=== PATIENT | female | born 1965 | race Caucasian/White ===

== ENCOUNTER 2016-05-26 15:05 | Inpatient (IN) | payer OTHER ==
[2016-05-26] MEDS ORDERED: Sodium Chloride 0.9% 1000 ML 1,000 ML ONE ×2 (15:44→18:59)
[2016-05-26] MEDS ORDERED: Sodium Chloride 0.9% 1000 ML 1,000 ML IV STA ×2 (15:48→18:58)
[2016-05-26] MEDS ORDERED: Zosyn 3.375GM/100 Ml D5W 100 ML IV ONE ×2 (15:50→16:07)
[2016-05-26] MEDS ORDERED: Zithromax 500 MG/ 250 ML NaCl Premix 250 ML IV ONE ×2 (15:50→16:07)
[2016-05-26] MEDS ORDERED: PROVENTIL 2.5 MG/3 ML NEB IH ONE (15:50)
--- NOTE | 2016-05-26 16:08 | ERPHSYRPT ---
- History of Present Illness Time Seen by Provider: 05/26/16 15:46 Source: patient Exam Limitations: clinical condition Patient Subjective Stated Complaint: PT REPORTS PRODUCTIVE COUGH WORSENING FOR KEIRA 1 WK-UNSURE OF FEVER-REPORTS INTERMITTANT CHEST PAIN WORSENIGN WITH DEEP BREATHING-PT STATES SHE IS TOWARD THE END OF OPIOD WITHDRAWAL-LAST TAKEN KEIRA 6 DAYS AGO Triage Nursing Assessment: PT PINK WARM FLUSHED ET DRY-A & O X 3-RETRACTIVE BREATHING NOTED-DIFFICUTLY SPEAKING IN COMPLETE SENTENCES NOTED-ADVENTIOUS BREATH SOUNDS NOTED Physician History: PATIENT WITH HISTORY OF COPD, COMPLAINS OF PRODUCTIVE COUGH, SHARP LEFT LOWER CHEST PAINS UPON INSPIRATION X 1 WEEK, FEVER AND CHILLS. ADMITS TO BEING OUT OF HER MORPHINE X 6 DAYS, FOR CHRONIC PAIN SYNDROME, DEGENERATIVE DISC DISEASE. Timing/Duration: week(s) Activities at Onset: activity Severity of Dyspnea-Max: severe Severity of Dyspnea-Current: severe Possible Cause: occasional episodes Modifying Factors: Improves With: coughing, deep breath Associated Symptoms: constant, cough International travel in last 2 weeks: No Allergies/Adverse Reactions: aspirin Allergy (Verified 05/26/16 15:10) codeine [Codeine] Allergy (Verified 05/26/16 15:10) hydrocodone [Hydrocodone] Allergy (Verified 05/26/16 15:10) Hives oxycodone [Oxycodone] Allergy (Verified 05/26/16 15:10) Hives prochlorperazine edisylate [From Compazine] Allergy (Verified 05/26/16 15:10) prochlorperazine maleate [From Compazine] Allergy (Verified 05/26/16 15:10) Home Medications: Divalproex Sodium 250 mg [Depakote 250 MG] 500 mg PO BID 07/26/12 [History] Clonazepam 0.5 mg [Klonopin 0.5 MG] 0.5 mg PO BID 10/27/12 [History] Doxepin HCl 75 mg PO BID 10/27/12 [History] Clonazepam 0.5 mg [Klonopin 0.5 MG] 1 mg PO BID 01/31/16 [History] Tapentadol HCl [Nucynta ER] 150 mg BID 01/31/16 [History] Hx Tetanus, Diphtheria Vaccination/Date Given: Yes Hx Influenza Vaccination/Date Given: No Hx Pneumococcal Vaccination/Date Given: No Immunizations Up to Date: Yes - Review of Systems Constitutional: Fever, Chills Eyes: No Symptoms Ears, Nose, & Throat: No Symptoms Respiratory: Cough, Dyspnea, Dyspnea on Exertion (STUART) Cardiac: Chest Pain, No Edema, No Syncope Abdominal/Gastrointestinal: No Abdominal Pain, No Nausea, No Vomiting, No Diarrhea Genitourinary Symptoms: No Symptoms, No Dysuria Musculoskeletal: No Symptoms, No Back Pain, No Neck Pain Skin: No Rash Neurological: No Dizziness, No Focal Weakness, No Sensory Changes Psychological: No Symptoms Endocrine: No Symptoms All Other Systems: Reviewed and Negative - Past Medical History Pertinent Past Medical History: Yes Neurological History: Seizures, Stroke ENT History: No Pertinent History Cardiac History: No Pertinent History Respiratory History: Asthma, Pneumonia Endocrine Medical History: No Pertinent History Musculoskeletal History: Arthritis, Degenerative Disk Disease, Osteoarthritis, Other GI Medical History: Other History: No Pertinent History Psycho-Social History: Anxiety, Depression Female Reproductive Disorders: Other Other Medical History: ADHEASIONS - Past Surgical History Past Surgical History: Yes Neuro Surgical History: No Pertinent History Cardiac: No Pertinent History Respiratory: No Pertinent History Gastrointestinal: Cholecystectomy Female Surgical History: Hysterectomy Other Surgical History: C SECTIONS X 6 - Social History Smoking Status: Current every day smoker How long have you smoked: YRS Exposure to second hand smoke: Yes Alcohol Use: None Drug Use: none Patient Lives Alone: No Significant Family History: no pertinent family hx - Female History Hx Now: No - Nursing Vital Signs Nursing Vital Signs: Initial Vital Signs Temperature 97.8 F Temperature Source Oral Pulse Rate 80 Respiratory Rate 18 Blood Pressure 107/63 Pain Intensity 9 - Physical Exam General Appearance: mild distress Eye Exam: PERRL/EOMI Neck Exam: normal inspection, supple Respiratory Exam: diminished breath sounds, prolonged expirations, rhonchi, wheezing (DECREASE BREATH SOUNDS WITH RHONCHI AND WHEEZES, MARKED TENDERNESS LEFT LATERAL LOWER CHEST WALL) Cardiovascular/Chest Exam: normal heart sounds, tachycardia Abdominal/Gastrointestinal Exam: soft, normal bowel sounds Extremity Exam: non-tender, normal range of motion Peripheral Pulses Exam: carotid (R): 2+, carotid (L): 2+, femoral (R): 2+, femoral (L): 2+, dorsalis-pedis (R): 2+, dorsalis-pedis (L): 2+ Neurologic Exam: alert, normal mood/affect Skin Exam: normal color Lymphatic Exam: adenopathy SpO2 Interpretation: normal SpO2: 98 - Course EKG Interpreted by Me: RATE, Sinus Rhythm, NORMAL AXIS - Radiology Exams Ribs X-ray Interpretation: Discussed w/ radiologist (NONACUTE CHEST ) Ordered Tests: Active Orders 24 hr Category Date Time Status Up With Assistance ROUTINE Activity 05/26/16 18:59 Active Admission/Status Order ROUTINE Care 05/26/16 19:00 Active Bill Cutter STAT Care 05/26/16 15:48 Active Code Status Order ROUTINE Care 05/26/16 19:00 Active EKG-ER Only STAT Care 05/26/16 15:48 Active IV Care Q6H Care 05/26/16 19:00 Active IV Insertion STAT Care 05/26/16 15:48 Active Oxygen-ED Only NASAL CANNULA 2 lpm Care 05/26/16 15:48 Active Tyron Hose, Apply ROUTINE Care 05/26/16 19:00 Active Telemetry ROUTINE Care 05/26/16 18:59 Active Vital Signs Q4H Care 05/26/16 18:59 Active Weight,Daily 0600 Care 05/26/16 19:00 Active Cardiac Diet Diet 05/26/16 Breakfast Active CHEST 1 VIEW (PORTABLE) Stat Exams 05/26/16 15:49 Completed ARTERIAL BLOOD GASES Urgent Lab 05/26/16 15:48 Completed BLOOD CULTURE Stat Lab 05/26/16 16:30 Received CBC W DIFF Stat Lab 05/26/16 15:45 Completed CMP Stat Lab 05/26/16 17:00 Completed D-DIMER QUANTITATION Stat Lab 05/26/16 15:45 Completed Lactic Acid Urgent Lab 05/26/16 15:50 Completed Manual Differential NC Stat Lab 05/26/16 15:45 Completed PROTIME WITH INR Stat Lab 05/26/16 15:45 Completed TROPONIN Q3H Lab 05/26/16 15:45 Completed TROPONIN Q3H Lab 05/26/16 19:00 Ordered TROPONIN Q3H Lab 05/26/16 22:00 Ordered TROPONIN Q3H Lab 05/27/16 01:00 Ordered TROPONIN Q3H Lab 05/27/16 04:00 Ordered UA Stat Lab 05/26/16 16:13 Completed Urine Triage Profile Stat Lab 05/26/16 16:13 Completed VALPROIC ACID ([place]) Routine Lab 05/26/16 15:45 Completed Oxygen NASAL CANNULA 2 lpm RT 05/26/16 18:59 Active Pulse Oximetry CONTINUOUS RT 05/26/16 19:01 Active Respiratory Nebulizer Q4H RT 05/26/16 18:59 Active Respiratory Nebulizer STAT RT 05/26/16 15:51 Completed Transfer Order Routine Transfer 05/26/16 18:59 Ordered Medication Summary Generic Name Dose Route Start Last Admin Trade Name Freq PRN Reason Stop Dose Admin Albuterol/Ipratropium 3 ml 05/26/16 19:00 Duoneb 0.5-3 Mg/3 Ml Neb IH 06/25/16 18:59 Q4HRT SONIA Clonazepam 1 mg 05/26/16 22:00 Klonopin 0.5 Mg PO 06/25/16 21:59 BID SONIA Divalproex Sodium 500 mg 05/26/16 22:00 Depakote 250 Mg PO 06/25/16 21:59 BID SONIA Sodium Chloride 1,000 mls @ 999 mls/hr 05/26/16 18:58 05/26/16 19:02 Sodium Chloride 0.9% 1000 Ml IV 05/26/16 19:58 999 mls/hr .Q1H1M STA Administration Azithromycin 250 mls @ 125 mls/hr 05/27/16 10:00 Zithromax 500 Mg/ 250 Ml Nacl Premix IV 06/26/16 09:59 Q24H10 SONIA Piperacillin Sod/Tazobactam Sod 100 mls @ 100 mls/hr 05/27/16 00:00 Zosyn 3.375gm/100 Ml D5w IV 06/26/16 00:00 Q6HT SONIA Sodium Chloride 1,000 mls @ 100 mls/hr 05/26/16 19:00 Sodium Chloride 0.9% 1000 Ml IV 06/25/16 18:59 .Q10H SONIA Methylprednisolone Sodium Succinate 80 mg 05/27/16 00:00 Solu-Medrol 125 Mg IV 06/26/16 00:00 Q6HT SONIA Morphine Sulfate 5 mg 05/26/16 19:03 Morphine Sulfate 10 Mg/Ml IV 05/31/16 19:02 Q4H PRN PRN PAIN Discontinued Medications Generic Name Dose Route Start Last Admin Trade Name Freq PRN Reason Stop Dose Admin Albuterol Sulfate 10 mg 05/26/16 15:50 05/26/16 16:30 Proventil 2.5 Mg/3 Ml Neb IH 05/26/16 15:51 10 mg STAT ONE Administration Albuterol Sulfate Confirm 05/26/16 16:23 Proventil Solution 2.5 Mg/0.5 Ml Administered 05/26/16 16:24 Dose 10 mg IH .STK-MED ONE Hydromorphone HCl 1 mg 05/26/16 16:43 05/26/16 17:00 Dilaudid 1 Mg/Ml Injection IV 05/26/16 16:44 1 mg STAT ONE Administration Hydromorphone HCl Confirm 05/26/16 16:47 Dilaudid 1 Mg/Ml Injection Administered 05/26/16 16:48 Dose 1 mg .ROUTE .STK-MED ONE Sodium Chloride Confirm 05/26/16 15:44 Sodium Chloride 0.9% 1000 Ml Administered 05/26/16 15:45 Dose 1,000 mls @ ud .ROUTE .STK-MED ONE Sodium Chloride 1,000 mls @ 999 mls/hr 05/26/16 15:48 05/26/16 16:13 Sodium Chloride 0.9% 1000 Ml IV 05/26/16 16:48 999 mls/hr .Q1H1M STA Administration Azithromycin 250 mls @ 125 mls/hr 05/26/16 15:50 05/26/16 17:43 Zithromax 500 Mg/ 250 Ml Nacl Premix IV 05/26/16 17:49 125 mls/hr STAT ONE Administration Piperacillin Sod/Tazobactam Sod 100 mls @ 100 mls/hr 05/26/16 15:50 05/26/16 16:13 Zosyn 3.375gm/100 Ml D5w IV 05/26/16 16:49 100 mls/hr STAT ONE Administration Azithromycin Confirm 05/26/16 16:07 Zithromax 500 Mg/ 250 Ml Nacl Premix Administered 05/26/16 16:08 Dose 250 mls @ ud IV .STK-MED ONE Piperacillin Sod/Tazobactam Sod Confirm 05/26/16 16:07 Zosyn 3.375gm/100 Ml D5w Administered 05/26/16 16:08 Dose 100 mls @ ud IV .STK-MED ONE Sodium Chloride Confirm 05/26/16 18:59 Sodium Chloride 0.9% 1000 Ml Administered 05/26/16 19:00 Dose 1,000 mls @ ud .ROUTE .STK-MED ONE Ondansetron HCl 4 mg 05/26/16 16:42 05/26/16 17:00 Zofran 4 Mg/2 Ml Vial IV 05/26/16 16:43 4 mg STAT ONE Administration Ondansetron HCl Confirm 05/26/16 16:47 Zofran 4 Mg/2 Ml Vial Administered 05/26/16 16:48 Dose 4 mg .ROUTE .STK-MED ONE Sodium Chloride Confirm 05/26/16 16:23 Sodium Chloride 3 Ml Ud Nebules Administered 05/26/16 16:24 Dose 3 ml IH .STK-MED ONE Lab/Rad Data: Laboratory Result Diagrams 05/26/16 15:45 05/26/16 17:00 Laboratory Results 05/26/16 05/26/16 05/26/16 Range/Units 17:00 16:13 16:13 WBC (4.0-10.5) K/mm3 RBC (4.1-5.4) M/mm3 Hgb (12.0-16.0) gm/dl Hct (35-47) % MCV (78-100) fl MCH (26-32) pg MCHC (32-36) g/dl RDW (11.5-14.0) % Plt Count (150-450) K/mm3 MPV (6-9.5) fl INR (0.8-3.0) D-Dimer (0.00-0.49) mg/L Puncture Site pCO2 (35-45) mmHg pO2 (75-100) mmHg Base Excess (-2.0-2.0) O2 Saturation (94-100) g/dF ABG pH (7.35-7.45) ABG HCO3 (22-28) ABG O2 Sat (Measured) (95-100) % Mohan Test A-a Gradient a/A Ratio Hemoglobin Carboxyhemoglobin (0.0-6.9) % THgb Methemoglobin (1.4-1.5) % Potassium 3.5 (3.5-5.1) Temperature C POC O2 Flow Rate % Sodium 146 H (136-145) mEq/L Chloride 111 H (98-107) mEq/L Carbon Dioxide 25.0 (21-32) mEq/L Anion Gap 13.3 (5-15) MEQ/L BUN 13 (9-20) mg/dL Creatinine 0.75 (0.55-1.30) mg/dl Estimated GFR > 60 ML/MIN Glucose 163 H (70-110) MG/DL Lactic Acid (0.4-2.0) Calcium 8.1 L (8.5-10.1) mg/dL Total Bilirubin 0.1 L (0.2-1.0) mg/dL AST 15 (15-37) U/L ALT 12 (12-78) U/L Alkaline Phosphatase 65 (46-116) U/L Troponin I (0.000-0.056) ng/ml Serum Total Protein 6.2 L (6.4-8.2) gm/dL Albumin 3.0 L (3.4-5.0) g/dL Ur Collection Type CATH Urine Color LT.YELLOW (YELLOW) Urine Appearance SLIGHTLY CLOUDY (CLEAR) Urine pH 8.5 (5-6) Ur Specific [place] 1.020 (1.005-1.025) Urine Protein NEGATIVE (Negative) Urine Glucose (UA) NEGATIVE (NEGATIVE) mg/dL Urine Ketones NEGATIVE (NEGATIVE) Urine Nitrite NEGATIVE (NEGATIVE) Urine Bilirubin NEGATIVE (NEGATIVE) Urine Urobilinogen 0.2 (0-1) mg/dL Urine WBC (Auto) NEGATIVE (NEGATIVE) Urine RBC (Auto) NEGATIVE (0-5) Tomas/ul Urine Opiates Level NEG. (NEGATIVE) Ur Methadone NEG. (NEGATIVE) Urine Barbiturates NEG. (NEGATIVE) Valproic Acid (50-100) UG/ML Ur Phencyclidine (PCP) NEG. (NEGATIVE) Urine Amphetamine NEG. (NEGATIVE) U Benzodiazepine Level NEG. (NEGATIVE) Urine Cocaine NEG. (NEGATIVE) Urine Marijuana (THC) POS. (NEGATIVE) Specimen Received 05/26/16 1545 05/26/16 05/26/16 05/26/16 Range/Units 15:50 15:48 15:45 WBC (4.0-10.5) K/mm3 RBC (4.1-5.4) M/mm3 Hgb (12.0-16.0) gm/dl Hct (35-47) % MCV (78-100) fl MCH (26-32) pg MCHC (32-36) g/dl RDW (11.5-14.0) % Plt Count (150-450) K/mm3 MPV (6-9.5) fl INR (0.8-3.0) D-Dimer (0.00-0.49) mg/L Puncture Site RIGHT BRACHIAL pCO2 36 (35-45) mmHg pO2 87 (75-100) mmHg Base Excess 2.6 H (-2.0-2.0) O2 Saturation 91.5 L (94-100) g/dF ABG pH 7.47 H (7.35-7.45) ABG HCO3 26.2 (22-28) ABG O2 Sat (Measured) 97.7 (95-100) % Mohan Test NOT APPLICABLE A-a Gradient 82 a/A Ratio 0.51 Hemoglobin 12.9 Carboxyhemoglobin 5.0 (0.0-6.9) % THgb Methemoglobin 1.3 L (1.4-1.5) % Potassium 3.2 L (3.5-5.1) Temperature 37.0 C POC O2 Flow Rate 30 % Sodium (136-145) mEq/L Chloride (98-107) mEq/L Carbon Dioxide (21-32) mEq/L Anion Gap (5-15) MEQ/L BUN (9-20) mg/dL Creatinine (0.55-1.30) mg/dl Estimated GFR ML/MIN Glucose (70-110) MG/DL Lactic Acid 5.1 H (0.4-2.0) Calcium (8.5-10.1) mg/dL Total Bilirubin (0.2-1.0) mg/dL AST (15-37) U/L ALT (12-78) U/L Alkaline Phosphatase (46-116) U/L Troponin I < 0.017 (0.000-0.056) ng/ml Serum Total Protein (6.4-8.2) gm/dL Albumin (3.4-5.0) g/dL Ur Collection Type Urine Color (YELLOW) Urine Appearance (CLEAR) Urine pH (5-6) Ur Specific [place] (1.005-1.025) Urine Protein (Negative) Urine Glucose (UA) (NEGATIVE) mg/dL Urine Ketones (NEGATIVE) Urine Nitrite (NEGATIVE) Urine Bilirubin (NEGATIVE) Urine Urobilinogen (0-1) mg/dL Urine WBC (Auto) (NEGATIVE) Urine RBC (Auto) (0-5) Tomas/ul Urine Opiates Level (NEGATIVE) Ur Methadone (NEGATIVE) Urine Barbiturates (NEGATIVE) Valproic Acid < 3.0 L (50-100) UG/ML Ur Phencyclidine (PCP) (NEGATIVE) Urine Amphetamine (NEGATIVE) U Benzodiazepine Level (NEGATIVE) Urine Cocaine (NEGATIVE) Urine Marijuana (THC) (NEGATIVE) Specimen Received 05/26/16 05/26/16 Range/Units 15:45 15:45 WBC 16.7 H (4.0-10.5) K/mm3 RBC 4.70 (4.1-5.4) M/mm3 Hgb 14.7 (12.0-16.0) gm/dl Hct 45.2 (35-47) % MCV 96.2 (78-100) fl MCH 31.3 (26-32) pg MCHC 32.5 (32-36) g/dl RDW 14.3 H (11.5-14.0) % Plt Count 255 (150-450) K/mm3 MPV 10.6 H (6-9.5) fl INR 1.09 (0.8-3.0) D-Dimer 0.483 (0.00-0.49) mg/L Puncture Site pCO2 (35-45) mmHg pO2 (75-100) mmHg Base Excess (-2.0-2.0) O2 Saturation (94-100) g/dF ABG pH (7.35-7.45) ABG HCO3 (22-28) ABG O2 Sat (Measured) (95-100) % Mohan Test A-a Gradient a/A Ratio Hemoglobin Carboxyhemoglobin (0.0-6.9) % THgb Methemoglobin (1.4-1.5) % Potassium (3.5-5.1) Temperature C POC O2 Flow Rate % Sodium (136-145) mEq/L Chloride (98-107) mEq/L Carbon Dioxide (21-32) mEq/L Anion Gap (5-15) MEQ/L BUN (9-20) mg/dL Creatinine (0.55-1.30) mg/dl Estimated GFR ML/MIN Glucose (70-110) MG/DL Lactic Acid (0.4-2.0) Calcium (8.5-10.1) mg/dL Total Bilirubin (0.2-1.0) mg/dL AST (15-37) U/L ALT (12-78) U/L Alkaline Phosphatase (46-116) U/L Troponin I (0.000-0.056) ng/ml Serum Total Protein (6.4-8.2) gm/dL Albumin (3.4-5.0) g/dL Ur Collection Type Urine Color (YELLOW) Urine Appearance (CLEAR) Urine pH (5-6) Ur Specific [place] (1.005-1.025) Urine Protein (Negative) Urine Glucose (UA) (NEGATIVE) mg/dL Urine Ketones (NEGATIVE) Urine Nitrite (NEGATIVE) Urine Bilirubin (NEGATIVE) Urine Urobilinogen (0-1) mg/dL Urine WBC (Auto) (NEGATIVE) Urine RBC (Auto) (0-5) Tomas/ul Urine Opiates Level (NEGATIVE) Ur Methadone (NEGATIVE) Urine Barbiturates (NEGATIVE) Valproic Acid (50-100) UG/ML Ur Phencyclidine (PCP) (NEGATIVE) Urine Amphetamine (NEGATIVE) U Benzodiazepine Level (NEGATIVE) Urine Cocaine (NEGATIVE) Urine Marijuana (THC) (NEGATIVE) Specimen Received - Progress Progress: improved Progress Note: 05/26/16 16:06 PLACED ONTO SEPSIS PROTOCOL DUE TO TACHYCARDIA, AND TACHYPNEA, HAD 2 DUONEB AEROSOL TREATMENTS ENROUTE VIA EMS. AFTER 2 SETS OF BLOOD CULTURES GIVEN ZOSYN 3.375GM AND ZITHROMAX 500MG IVPB 05/26/16 18:56- EXAM PERIPHERAL PULSES 2+, CHEST BREATH SOUNDS WHEEZES IMPROVED , INCREASED AIR EXCHANGE Blood Culture(s) Obtained: Yes Antibiotics given: Yes Discussed with DrMiguel A: Roya (AT 1850 FOR ADMISSION) - Departure Time of Disposition: 19:00 Departure Disposition: In-patient Admission Clinical Impression: EXACERBATION COPD Condition: Stable Critical Care Time: No Referrals: ILLIANA CLAY, COOK DESSERT [Primary Care Provider] -
[2016-05-26 16:15] LABS: Mean Cell Volume 96.2 fl (78-100); Mean Corpuscular Hemoglobin 31.3 pg (26-32); Mean Platelet Volume 10.6 fl (6-9.5); Platelet Count 255 K/mm3 (150-450); Red Cell Distribution Width 14.3 % (11.5-14.0); White Blood Count 16.7 K/mm3 (4.0-10.5)
[2016-05-26 16:15] LABS: Collection Type CATH
[2016-05-26 16:16] LABS: COMPLETE URINE MICROSCOPIC? NO; Ph 8.5 (5-6)
[2016-05-26] MEDS ORDERED: Sodium Chloride 3 ML UD NEBULES IH ONE (16:23)
[2016-05-26] MEDS ORDERED: PROVENTIL Solution 2.5 MG/0.5 ML IH ONE (16:23)
--- NOTE | 2016-05-26 16:28 | XRAY ---
Indication: Cough. Comparison: June 01, 2015 Portable chest is clear. Heart is not enlarged. Vascularity normal. Bony thorax intact. Impression: Nonacute chest.
[2016-05-26] MEDS ORDERED: Zofran 4 MG/2 ML VIAL IV ONE (16:42)
[2016-05-26] MEDS ORDERED: DILAUDID 1 MG/ML INJECTION IV ONE (16:43)
[2016-05-26] MEDS ORDERED: Zofran 4 MG/2 ML VIAL ONE (16:47)
[2016-05-26] MEDS ORDERED: DILAUDID 1 MG/ML INJECTION ONE (16:47)
[2016-05-26 16:48] LABS: A-aADO2 82; ARTERIAL BLD GAS O2 SATURATION 97.7 % (95-100); ARTERIAL BLOOD GAS BASE EXCESS 2.6 (-2.0-2.0); ARTERIAL BLOOD GAS FIO2 30 %; ARTERIAL BLOOD GAS PO2 87 mmHg (75-100); ARTERIAL BLOOD GAS pH 7.47 (7.35-7.45)
[2016-05-26 18:20] LABS: INR 1.09 (0.8-3.0); PROTIME 12.2 SECONDS (9.95-12.35)
[2016-05-26 18:37] LABS: ALKALINE PHOSPHATASE 65 U/L (46-116); ANION GAP 13.3 MEQ/L (5-15); BILIRUBIN,TOTAL 0.1 mg/dL (0.2-1.0); BLOOD UREA NITROGEN 13 mg/dL (9-20); CHLORIDE 111 mEq/L (98-107); Glucose 163 MG/DL (70-110); Potassium 3.5 mEq/L (3.5-5.1); SGOT/AST 15 U/L (15-37); SGPT/ALT 12 U/L (12-78); SODIUM 146 mEq/L (136-145); Total Protein 6.2 gm/dL (6.4-8.2)
[2016-05-26 18:53] LABS: TROPONIN < 0.017 ng/ml (0.000-0.056)
[2016-05-26] MEDS ORDERED: MORPHINE SULFATE 10 MG/ML IV PRN (19:03)
[2016-05-26] MEDS ORDERED: solu-MEDROL 125 MG IV ONE (19:06)
[2016-05-26] MEDS ORDERED: solu-MEDROL 125 MG ONE (19:08)
[2016-05-26] MEDS: DUONEB 0.5-3 MG/3 ml Neb IH SCH ×2 (19:47→22:58)
[2016-05-26] MEDS: Klonopin 0.5 MG PO SCH (21:11)
[2016-05-26] MEDS: Neurontin 100 MG PO SCH (21:49)
[2016-05-26] MEDS ORDERED: DEPAKOTE 250 MG PO SCH (22:00)
[2016-05-26] MEDS: Sodium Chloride 0.9% 1000 ML 1,000 ML IV SCH (22:26)
[2016-05-26] MEDS: Sodium Chloride 0.9% 1000 ML 1,000 ML IV STA (22:56)
[2016-05-26 23:35] LABS: Platelet Estimate NORMAL (NORMAL); Total Cells Counted 100
[2016-05-26] MEDS: Zosyn 3.375GM/100 Ml D5W 100 ML IV SCH (23:43)
[2016-05-26] MEDS: solu-MEDROL 125 MG IV SCH (23:43)
[2016-05-27] MEDS ORDERED: Sodium Chloride 0.9% 1000 ML 1,000 ML IV STA (00:53)
[2016-05-27] MEDS: Sodium Chloride 0.9% 1000 ML 1,000 ML IV STA (01:00)
[2016-05-27] MEDS: MORPHINE SULFATE 10 MG/ML IV PRN ×6 (01:00→21:44)
[2016-05-27] MEDS: Sodium Chloride 0.9% 1000 ML 1,000 ML IV SCH ×2 (02:17→16:20)
[2016-05-27] MEDS: DUONEB 0.5-3 MG/3 ml Neb IH SCH ×5 (02:49→19:08)
[2016-05-27] MEDS: Zosyn 3.375GM/100 Ml D5W 100 ML IV SCH ×3 (06:03→17:45)
[2016-05-27] MEDS: solu-MEDROL 125 MG IV SCH ×3 (06:03→21:19)
[2016-05-27] MEDS ORDERED: MEDICATION INTERVENTION MC PRN (07:43)
[2016-05-27] MEDS: Xopenex 1.25 MG/0.5 ML UD NEBULE IH PRN ×2 (08:51→21:57)
[2016-05-27] MEDS: Advair Hfa 115/21 Common canister IH SCH ×2 (09:00→19:09)
[2016-05-27] MEDS: Phenergan 25 MG INJ IV PRN ×2 (09:01→17:53)
[2016-05-27] MEDS: KEPPRA 500 MG PO SCH (09:47)
[2016-05-27] MEDS: DOXEPIN HCL PO SCH ×2 (09:47→21:20)
[2016-05-27] MEDS: Neurontin 100 MG PO SCH ×3 (09:47→21:20)
[2016-05-27] MEDS: Klonopin 0.5 MG PO SCH ×2 (09:47→21:20)
[2016-05-27] MEDS: PROTONIX 40 MG IV IV SCH (09:54)
[2016-05-27] MEDS ORDERED: NON-FORMULARY ITEM (Fluticasone/Vilanterol [Breo Ellipta 200-25 Mcg Inh] 1 EACH) IH SCH (10:00)
[2016-05-27] MEDS ORDERED: Zithromax 500 MG/ 250 ML NaCl Premix 250 ML IV SCH (10:00)
[2016-05-27] MEDS ORDERED: DOXEPIN HCL 75 MG PO SCH (10:00)
--- NOTE | 2016-05-27 12:58 | PCM.HP ---
History of Present Illness - Chief Complaint Chief Complaint: Shortness of Breath Date: 05/27/16 History of Present Illness: is a 50 year old female. presented with 7 days of worsening cough and shortness of breath. She is very vague in her history she states she saw Dr. Watson and his SOFTWARE DEVELOPER CONSULTANT last week for this and had an X-ray done at that time but continued to get worse and presented to the ED last tonight. She states she is having severe pains from coughing and has been vomiting and having diarrhea. On further questioning she states she has not taken any narcotics in 1 week. overnight she was repeatedly wanting more pain medication IV for her pains in her abdomen back chest. She states she was taking 15 mg of morphine 4 times a day from an old prescription from Dr. Yuong but on INSpect she has not had Morphine filled in a very long time and it looks like the last time she had Rx from Dr. Young was in January for Nucynta. She is also seeing Dr. Ho for her clonazepam. 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 She denies any IV drug abuse. Currently she is not having diarrhea or vomiting but is complaining of sharp pains with breathing or coughing. - Review of Systems Constitutional: Fever, Chills, Fatigue, Night Sweats, Weakness Respiratory: Cough, Short Of Breath Cardiac: Chest Pain, Palpitations, No Edema Abdominal/Gastrointestinal: Abdominal Pain, Nausea, Vomiting, Diarrhea Genitourinary Symptoms: No Symptoms Musculoskeletal: Arthralgias, Back Pain, Neck Pain, Myalgias Neurological: Headache Psychological: Anxiety, Depression Hematologic/Lymphatic: No Anemia, No Blood Clots Medications & Allergies Home Medications: Home Medication List Doxepin HCl 75 mg PO BID 10/27/12 [History Confirmed 05/26/16] Clonazepam 0.5 mg [Klonopin 0.5 MG] 1 mg PO BID 01/31/16 [History Confirmed 05/26/16] Fluticasone/Vilanterol [Breo Ellipta 200-25 Mcg INH] 1 each IH DAILY 05/26/16 [ History Confirmed 05/26/16] Gabapentin [Neurontin] 100 mg PO TID 05/26/16 [History Confirmed 05/26/16] Levetiracetam [Keppra 500 mg ] 500 mg PO DAILY 05/26/16 [History Confirmed 05/26/16] Allergies/Adverse Reactions: Allergies Allergy/AdvReac Type Severity Reaction Status Date / Time aspirin Allergy Verified 05/26/16 15:10 codeine [Codeine] Allergy Verified 05/26/16 15:10 hydrocodone [Hydrocodone] Allergy Hives Verified 05/26/16 15:10 oxycodone [Oxycodone] Allergy Hives Verified 05/26/16 15:10 prochlorperazine edisylate Allergy Verified 05/26/16 15:10 [From Compazine] prochlorperazine maleate Allergy Verified 05/26/16 15:10 [From Compazine] - Past Medical History Past Medical History: Yes Neurological History: Seizures, Stroke ENT History: No Pertinent History Cardiac History: No Pertinent History Respiratory History: Asthma, Pneumonia Endocrine Medical History: No Pertinent History Musculoskelatal History: Arthritis, Degenerative Disk Disease, Osteoarthritis, Other GI Medical History: Other History: No Pertinent History Pyscho-Social History: Anxiety, Depression Reproductive Disorders: Other Comment: ADHEASIONS - Female History Are you now?: No - Past Surgical History Past Surgical History: Yes Neuro Surgical History: No Pertinent History Cardiac History: No Pertinent History Respiratory Surgery: No Pertinent History GI Surgical History: Cholecystectomy Female Surgical History: Hysterectomy Other Surgical History: C SECTIONS X 6 - Social History Smoking Status: Current every day smoker How long have you smoked: YRS Exposure to second hand smoke: Yes Alcohol: None Drug Use: none Significant Family History: no pertinent family hx - Physical Exam Vital Signs: Vital Signs - 24 hr Temp Pulse Resp BP BP Pulse Ox 05/27/16 11:35 98.1 F 87 20 118/59 94 L 05/27/16 11:23 89 12 94 L 05/27/16 09:05 100 H 20 98 05/27/16 07:53 98.5 F 71 20 118/57 96 05/27/16 06:58 71 20 98 05/27/16 04:00 98.5 F 85 21 108/61 96 05/27/16 02:53 84 22 97 05/27/16 00:00 97.8 F 86 20 113/63 97 05/26/16 23:01 86 20 97 05/26/16 23:00 97.8 F 78 21 113/63 96 05/26/16 20:49 90 20 98 05/26/16 19:07 98 05/26/16 19:05 80 18 107/63 99 05/26/16 19:00 97.5 F 92 H 20 121/60 98 05/26/16 18:13 82 16 98/53 100 05/26/16 16:31 75 20 99 05/26/16 16:04 68 24 148/85 100 05/26/16 15:11 97.8 F 108 H 26 H 148/69 98 Oxygen-Last 24 hours O2 Percentage 2 Liters = 28% O2 Percentage 2 Liters = 28% O2 Percentage 2 Liters = 28% O2 Percentage 2 Liters = 28% O2 Percentage 2 Liters = 28% O2 Percentage 2 Liters = 28% O2 Percentage 2 Liters = 28% O2 Percentage 2 Liters = 28% General Appearance: no apparent distress, alert, anxiety Neurologic Exam: oriented x 3, cooperative Eye Exam: No scleral icterus, No pale conjunctivae Ears, Nose, Throat Exam: moist mucous membranes Neck Exam: non-tender, supple Respiratory Exam: prolonged expirations, wheezing Cardiovascular Exam: regular rate/rhythm, normal heart sounds, normal peripheral pulses, No edema Gastrointestinal/Abdomen Exam: soft, normal bowel sounds, tenderness (diffuse hypersensitive to light touch) Extremity Exam: normal inspection, No pedal edema Skin Exam: warm, dry Results - Labs Lab/Micro Results: Lab Results-Last 24 Hours 05/26/16 05/26/16 05/26/16 Range/Units 20:05 20:08 22:17 Lactic Acid 3.5 H (0.4-2.0) Troponin I < 0.017 < 0.017 (0.000-0.056) ng/ml 05/27/16 05/27/16 05/27/16 Range/Units 00:34 00:42 04:20 Lactic Acid 4.0 H 3.1 H (0.4-2.0) Troponin I < 0.017 (0.000-0.056) ng/ml 05/27/16 Range/Units 04:21 Lactic Acid (0.4-2.0) Troponin I < 0.017 (0.000-0.056) ng/ml - Other Procedures and Tests Respiratory Therapy 05/26/16 18:59 Oxygen NASAL CANNULA 2 lpm Respiratory Nebulizer Q4H 05/27/16 07:00 Respiratory MDI BID Assessment/Plan (1) COPD exacerbation Current Visit: Yes Status: Acute Assessment & Plan: will wean the iv steroids continue the nebs and antibiotic the lactic acid was elevated however she was alkalotic on the abg it appears she is withdrawing from opiates based on combined factors continue to treat tthe COPD troponins and D Dimer were negative monitor abdominal symptoms if not improving check CT start protonix Code(s): J44.1 - CHRONIC OBSTRUCTIVE PULMONARY DISEASE W (ACUTE) EXACERBATION (2) Anxiety Current Visit: Yes Status: Acute Code(s): F41.9 - ANXIETY DISORDER, UNSPECIFIED (3) Vomiting and diarrhea Current Visit: Yes Status: Acute Assessment & Plan: given the vague history hyperventilation on the ABG and the symptoms and high doses of morphine she tolerates there is a strong suspicion for opiate withdraw although she denies using meds not prescribed but admits to taking morphine that was prescribed however this does not correspond to her inspect report. Code(s): R11.10 - VOMITING, UNSPECIFIED; R19.7 - DIARRHEA, UNSPECIFIED (4) Marijuana abuse Current Visit: Yes Status: Chronic Code(s): F12.10 - CANNABIS ABUSE, UNCOMPLICATED (5) Seizure disorder Current Visit: Yes Status: Chronic Code(s): G40.909 - EPILEPSY, UNSP, NOT INTRACTABLE, WITHOUT STATUS EPILEPTICUS
[2016-05-27] MEDS: TYLENOL 325 MG PO PRN (21:21)
[2016-05-27] MEDS ORDERED: Sodium Chloride 3 ML UD NEBULES IH ONE (21:56)
[2016-05-28] MEDS: Zosyn 3.375GM/100 Ml D5W 100 ML IV SCH ×4 (01:00→17:09)
[2016-05-28] MEDS: MORPHINE SULFATE 10 MG/ML IV PRN ×4 (01:30→20:23)
[2016-05-28] MEDS: Phenergan 25 MG INJ IV PRN ×2 (01:31→07:11)
[2016-05-28] MEDS: DUONEB 0.5-3 MG/3 ml Neb IH SCH ×7 (01:33→22:51)
[2016-05-28] MEDS: Sodium Chloride 0.9% 1000 ML 1,000 ML IV SCH (04:11)
[2016-05-28] MEDS: solu-MEDROL 125 MG IV SCH (05:10)
[2016-05-28 06:22] LABS: Mean Cell Volume 98.3 fl (78-100); Mean Corpuscular Hemoglobin 31.1 pg (26-32); Mean Platelet Volume 11.5 fl (6-9.5); Platelet Count 132 K/mm3 (150-450); Red Blood Count 3.44 M/mm3 (4.1-5.4); Red Cell Distribution Width 14.7 % (11.5-14.0); White Blood Count 23.8 K/mm3 (4.0-10.5)
[2016-05-28 06:37] LABS: BLOOD UREA NITROGEN 9 mg/dL (9-20); CHLORIDE 109 mEq/L (98-107); Carbon Dioxide 23.8 mEq/L (21-32); Glucose 192 MG/DL (70-110); Potassium 3.1 mEq/L (3.5-5.1); SODIUM 144 mEq/L (136-145)
[2016-05-28] MEDS: Advair Hfa 115/21 Common canister IH SCH ×2 (06:39→18:37)
[2016-05-28] MEDS ORDERED: Sodium Chloride 3 ML UD NEBULES IH PRN (06:59)
[2016-05-28 08:08] LABS: BAND 3 % (0.0-2.0); Hypochromia 1+; Platelet Estimate NORMAL (NORMAL); Total Cells Counted 100
--- NOTE | 2016-05-28 08:18 | PCM.NOTE ---
Date and Time: 05/28/16816 Subjective Assessment: she continues to complain of abdominal pain she requested pain medicine yesterday per nursing but did not appear in pain initially and she was slurring her words and tired and thus it was not given she is more alert now and stating the pain is in the upper abdomen radiating to the back and down the spine. She state she is still short of breath and nauseated but no more diarrhea. Objective Exam General Appearance: no apparent distress, anxiety, thin Neurologic Exam: oriented x 3 Skin Exam: warm, dry, pale Eye Exam: No scleral icterus, No pale conjunctivae Ears, Nose, Throat Exam: dry mucous membranes Neck Exam: non-tender, supple Respiratory Exam: prolonged expirations, wheezing Cardiovascular Exam: regular rate/rhythm, normal heart sounds, normal peripheral pulses, No edema Gastrointestinal/Abdomen Exam: soft, tenderness, No distention, No mass, No guarding, No ecchymosis, No rebound Extremity Exam: normal inspection, No pedal edema OBJECTIVE DATA Vital Signs: Vital Signs - 24 hr Temp Pulse Resp BP Pulse Ox 05/28/16 07:21 97.8 F 78 20 128/59 96 05/28/16 06:41 78 16 97 05/28/16 04:00 98.0 F 77 16 117/58 97 05/28/16 03:47 72 14 97 05/28/16 01:33 92 H 19 93 L 05/28/16 00:00 98.8 F 84 19 126/63 97 05/27/16 22:03 87 18 93 L 05/27/16 20:00 98.6 F 73 19 111/59 97 05/27/16 19:09 73 13 93 L 05/27/16 16:00 98.1 F 75 18 119/57 94 L 05/27/16 14:31 80 20 98 05/27/16 13:16 98.1 F 05/27/16 11:35 98.1 F 87 20 118/59 94 L 05/27/16 11:23 89 12 94 L 05/27/16 09:05 100 H 20 98 Oxygen-Last 24 hours O2 Percentage 2 Liters = 28% O2 Percentage 2 Liters = 28% O2 Percentage 2 Liters = 28% O2 Percentage 2 Liters = 28% O2 Percentage 2 Liters = 28% O2 Percentage 2 Liters = 28% Pain Assessment - Last Documented Pain Intensity 9 Pain Scale Used 0-10 Pain Scale Intake and Output: Intake & Output 05/25/16 05/26/16 05/27/16 05/28/16 11:59 11:59 11:59 11:59 Intake Total 3756 3180 Output Total 1100 1400 Balance 2656 1780 Weight 48.534 kg 48.897 kg Lab Results: Lab Results-Last 24 Hours 05/28/16 05/28/16 Range/Units 05:50 05:50 WBC 23.8 H (4.0-10.5) K/mm3 RBC 3.44 L (4.1-5.4) M/mm3 Hgb 10.7 L (12.0-16.0) gm/dl Hct 33.8 L (35-47) % MCV 98.3 (78-100) fl MCH 31.1 (26-32) pg MCHC 31.7 L (32-36) g/dl RDW 14.7 H (11.5-14.0) % Plt Count 132 L (150-450) K/mm3 MPV 11.5 H (6-9.5) fl Segmented Neutrophils 95 H (36.0-66.0) % Band Neutrophils 3 H (0.0-2.0) % Lymphocytes (Manual) 2 L (24-44) % Differential Comment NORMAL Platelet Estimate NORMAL (NORMAL) Hypochromasia 1+ Sodium 144 (136-145) mEq/L Potassium 3.1 L (3.5-5.1) mEq/L Chloride 109 H (98-107) mEq/L Carbon Dioxide 23.8 (21-32) mEq/L Anion Gap 14.0 (5-15) MEQ/L BUN 9 (9-20) mg/dL Creatinine 0.87 (0.55-1.30) mg/dl Estimated GFR > 60 ML/MIN Glucose 192 H (70-110) MG/DL Calcium 8.6 (8.5-10.1) mg/dL Radiology Exams: Radiology Procedures Category Date Time Status ABDOMEN AND PELVIS W CONTRAST [CT] Stat Exams 05/28/16 08:12 Ordered Multi-Disciplinary Progress Notes: Multi-Disciplinary Progress Notes 05/28/16 01:38 Respiratory Note by Modesto Schuler GAVE PT A PRN TX AT 2203 SO I HELD OFF FOR A LITTLE BIT FOR HER 2300TX. I GAVE THE TX AT 0133. Initialized on 05/28/16 01:38 - END OF NOTE Assessment/Plan (1) COPD exacerbation Current Visit: Yes Status: Acute Assessment & Plan: will wean the prednisone to po with the increased wbc possibly due to the steroids she has no change in her vitals no tachycardia or fevers her oxygen remains well with just 2 L nc O2. she is on the zosyn and nebs repeat the lactic acid check lipase get CT abd/pelv with contrast rule out source it still appears highly suspicious for drug seeking behavior and narcotic withdrawal symptoms for the source of her pain, nausea, diarrhea. with anemia repeat cbc today Code(s): J44.1 - CHRONIC OBSTRUCTIVE PULMONARY DISEASE W (ACUTE) EXACERBATION (2) Anxiety Current Visit: Yes Status: Acute Code(s): F41.9 - ANXIETY DISORDER, UNSPECIFIED (3) Vomiting and diarrhea Current Visit: Yes Status: Acute Code(s): R11.10 - VOMITING, UNSPECIFIED; R19.7 - DIARRHEA, UNSPECIFIED (4) Marijuana abuse Current Visit: Yes Status: Chronic Code(s): F12.10 - CANNABIS ABUSE, UNCOMPLICATED (5) Seizure disorder Current Visit: Yes Status: Chronic Code(s): G40.909 - EPILEPSY, UNSP, NOT INTRACTABLE, WITHOUT STATUS EPILEPTICUS (6) Anemia Current Visit: Yes Status: Acute Code(s): D64.9 - ANEMIA, UNSPECIFIED (7) Hepatitis C Current Visit: Yes Status: Acute Assessment & Plan: follows with infectious disease she states in [place] (8) Hypokalemia Current Visit: Yes Status: Acute Code(s): E87.6 - HYPOKALEMIA
[2016-05-28] MEDS: POTASSIUM CHLORIDE 20 mEq IN WATER 100ML 100 ML IV SCH ×2 (08:22→17:27)
[2016-05-28] MEDS: DELTASONE 20 MG PO SCH (10:18)
[2016-05-28] MEDS: DOXEPIN HCL PO SCH ×2 (10:19→22:22)
[2016-05-28] MEDS: Klonopin 0.5 MG PO SCH ×2 (10:20→22:21)
[2016-05-28] MEDS: Neurontin 100 MG PO SCH ×3 (10:20→22:21)
[2016-05-28] MEDS: KEPPRA 500 MG PO SCH (10:20)
--- NOTE | 2016-05-28 14:41 | XRAY ---
Indication: Long-term IV access and therapy. Poor venous access. Informed consent obtained. Patient was placed on the fluoroscopic table in a supine position. Initial sonographic imaging of the right upper extremity was performed for localization of patent veins. The right upper extremity was then prepped and draped in sterile fashion. Tourniquet applied. 1% lidocaine plain used for local anesthesia. Using ultrasound guidance and a micropuncture needle, a basilic vein above the elbow was successfully percutaneously cannulized. A floppy tip 0.018 guidewire inserted. Tourniquet released. Needle was exchanged for a 5 Tamazight dilator peel-away sheath catheter. Ultimately a 5 Tamazight double-lumen PICC line was inserted over a longer 0.018 guidewire with the tip positioned in the distal SVC using fluoroscopic guidance. Guidewire removed. Both ports flushed with heparinized saline. Catheter was secured. Postoperative instructions and orders given. Patient discharged in good condition. Impression: Technically successful right upper extremity PICC line placement using ultrasound and fluoroscopic guidance. No immediate complications . Approximately 1 cc blood loss. Approximately 0.6 minute of fluoroscopy used.
--- NOTE | 2016-05-28 14:41 | XRAY ---
Indication: Ultrasound guidance for PICC line placement. Initial sonographic imaging of the right upper extremity was performed for localization of patent veins. A patent basilic vein identified above the elbow. Ultrasound guidance was then used for PICC line insertion. Full PICC line insertion is reported separately.
[2016-05-28] MEDS: PROTONIX 40 MG IV IV SCH (14:49)
[2016-05-28 22:21] LABS: Mean Cell Volume 96.9 fl (78-100); Mean Corpuscular Hemoglobin 31.3 pg (26-32); Platelet Count 200 K/mm3 (150-450); Red Blood Count 3.51 M/mm3 (4.1-5.4); Red Cell Distribution Width 14.6 % (11.5-14.0); White Blood Count 20.2 K/mm3 (4.0-10.5)
[2016-05-28] MEDS: TYLENOL 325 MG PO PRN (22:21)
[2016-05-29] MEDS: Zosyn 3.375GM/100 Ml D5W 100 ML IV SCH ×5 (00:07→23:53)
[2016-05-29] MEDS: MORPHINE SULFATE 10 MG/ML IV PRN ×3 (00:07→07:21)
[2016-05-29] MEDS: Sodium Chloride 0.9% 1000 ML 1,000 ML IV SCH ×2 (02:29→14:07)
[2016-05-29] MEDS: Phenergan 25 MG INJ IV PRN ×3 (02:35→20:09)
[2016-05-29] MEDS: DUONEB 0.5-3 MG/3 ml Neb IH SCH ×6 (02:57→22:40)
[2016-05-29 05:51] LABS: Mean Cell Volume 97.5 fl (78-100); Platelet Count 199 K/mm3 (150-450); Red Blood Count 3.55 M/mm3 (4.1-5.4); Red Cell Distribution Width 14.6 % (11.5-14.0); White Blood Count 19.4 K/mm3 (4.0-10.5)
[2016-05-29 06:09] LABS: Mean Corpuscular Hemoglobin 30.9 pg (26-32)
[2016-05-29 06:32] LABS: ALBUMIN 2.6 g/dL (3.4-5.0); ALKALINE PHOSPHATASE 63 U/L (46-116); ANION GAP 8.2 MEQ/L (5-15); BILIRUBIN,TOTAL 0.2 mg/dL (0.2-1.0); BLOOD UREA NITROGEN 11 mg/dL (9-20); CHLORIDE 110 mEq/L (98-107); Carbon Dioxide 29.9 mEq/L (21-32); Glucose 138 MG/DL (70-110); Potassium 3.4 mEq/L (3.5-5.1); SGOT/AST 19 U/L (15-37); SGPT/ALT 37 U/L (12-78); SODIUM 145 mEq/L (136-145); Total Protein 5.5 gm/dL (6.4-8.2)
[2016-05-29] MEDS: Advair Hfa 115/21 Common canister IH SCH ×2 (06:45→18:52)
[2016-05-29 07:27] LABS: Total Cells Counted 100
[2016-05-29 07:28] LABS: Platelet Estimate NORMAL (NORMAL)
--- NOTE | 2016-05-29 09:18 | XRAY ---
Indication: Right-sided abdominal pain. Multiple contiguous axial images obtained through the abdomen and pelvis without contrast as ordered. Comparison: CT renal stone study of May 17, 2009 Lung bases demonstrates moderate bibasilar atelectasis/scarring without consolidation or large effusion. Heart is not enlarged. Noncontrasted stomach and bowel loops appear nonobstructed. There is moderate/significant scattered colonic fecal debris throughout. Tiny nonspecific pelvic free fluid. Normal sized appendix with again intraluminal appendicolith. Again previous hysterectomy and cholecystectomy. There is contrast in both pelvicalyceal system and urinary bladder obscuring calcifications/calculi. No hydronephrosis, hydroureter, or perinephric fluid. Biliary system remains prominent, not unusual for cholecystectomy patient. Urinary bladder is markedly distended. Remaining liver, pancreas, spleen, adrenal glands, kidneys, and ureters are unremarkable. Mild aortoiliac calcifications without AAA. Osseous structures intact with mild lumbar degenerative changes. Impression: 1. Fecal stasis without obstruction. Stable appendicolith without appendicitis. 2. Abnormally distended urinary bladder. Rule out outlet obstruction versus neurogenic bladder. 3. Tiny pelvic free fluid of uncertain etiology. 4. Residual contrast in the system obscuring evaluation for calcifications/calculi. CTDI is 9.61
[2016-05-29] MEDS: Neurontin 100 MG PO SCH ×3 (10:01→21:17)
[2016-05-29] MEDS: PROTONIX 40 MG IV IV SCH (10:01)
[2016-05-29] MEDS: KEPPRA 500 MG PO SCH (10:01)
[2016-05-29] MEDS: DELTASONE 20 MG PO SCH (10:01)
[2016-05-29] MEDS: DOXEPIN HCL PO SCH ×2 (10:01→21:17)
[2016-05-29] MEDS: Klonopin 0.5 MG PO SCH ×2 (10:01→21:17)
--- NOTE | 2016-05-29 10:04 | PCM.NOTE ---
Date and Time: 05/29/16 1001 Subjective Assessment: NOw she is complaining of the severe pains in her arms and radiating to her chest no longer with diarrhea no vomiting but dry heaves per patient she states feeling short of breath also but some improvement she admits continues to ask for the morphine every 2 hours. Objective Exam General Appearance: no apparent distress, thin Neurologic Exam: intoxicated appearance, slurred speech Skin Exam: warm, dry Eye Exam: No scleral icterus Ears, Nose, Throat Exam: moist mucous membranes Neck Exam: normal inspection, non-tender, supple Respiratory Exam: prolonged expirations, wheezing Cardiovascular Exam: regular rate/rhythm, normal heart sounds Gastrointestinal/Abdomen Exam: soft, normal bowel sounds, tenderness, No distention Extremity Exam: normal inspection, No calf tenderness OBJECTIVE DATA Vital Signs: Vital Signs - 24 hr Temp Pulse Resp BP Pulse Ox 05/29/16 07:19 97.8 F 72 20 111/64 96 05/29/16 06:45 75 16 96 05/29/16 04:00 97.6 F 86 15 88/50 95 05/29/16 03:04 86 15 95 05/29/16 00:00 98.0 F 73 14 95/56 98 05/28/16 22:51 82 16 95 05/28/16 20:00 98.2 F 83 16 90/54 96 05/28/16 18:38 78 18 97 05/28/16 16:18 97.9 F 78 18 130/68 95 05/28/16 15:08 70 18 96 05/28/16 12:39 97.8 F 80 20 133/61 96 05/28/16 10:49 86 16 95 Oxygen-Last 24 hours O2 Percentage 2 Liters = 28% O2 Percentage 2 Liters = 28% O2 Percentage 2 Liters = 28% O2 Percentage 2 Liters = 28% O2 Percentage 2 Liters = 28% O2 Percentage 2 Liters = 28% Pain Assessment - Last Documented Pain Intensity 8 Pain Scale Used 0-10 Pain Scale Intake and Output: Intake & Output 05/26/16 05/27/16 05/28/16 05/29/16 11:59 11:59 11:59 11:59 Intake Total 9876 3420 2073 Output Total 1100 1400 1950 Balance 2656 2019 123 Weight 48.534 kg 48.897 kg 49.532 kg Lab Results: Lab Results-Last 24 Hours 05/28/16 05/28/16 05/28/16 Range/Units 05:00 22:00 22:15 WBC 20.2 H (4.0-10.5) K/mm3 RBC 3.51 L (4.1-5.4) M/mm3 Hgb 11.0 L (12.0-16.0) gm/dl Hct 34.0 L (35-47) % MCV 96.9 (78-100) fl MCH 31.3 (26-32) pg MCHC 32.4 (32-36) g/dl RDW 14.6 H (11.5-14.0) % Plt Count 200 (150-450) K/mm3 MPV 10.0 H (6-9.5) fl Segmented Neutrophils (36.0-66.0) % Lymphocytes (Manual) (24-44) % Monocytes (Manual) (0.0-12.0) % Differential Comment Platelet Estimate (NORMAL) Sodium (136-145) mEq/L Potassium (3.5-5.1) mEq/L Chloride (98-107) mEq/L Carbon Dioxide (21-32) mEq/L Anion Gap (5-15) MEQ/L BUN (9-20) mg/dL Creatinine (0.55-1.30) mg/dl Estimated GFR ML/MIN Glucose (70-110) MG/DL Lactic Acid 1.1 (0.4-2.0) Calcium (8.5-10.1) mg/dL Total Bilirubin (0.2-1.0) mg/dL AST (15-37) U/L ALT (12-78) U/L Alkaline Phosphatase (46-116) U/L Serum Total Protein (6.4-8.2) gm/dL Albumin (3.4-5.0) g/dL Lipase 89 (73-393) U/L 05/28/16 05/29/16 05/29/16 Range/Units 22:15 05:35 05:35 WBC 19.4 H (4.0-10.5) K/mm3 RBC 3.55 L (4.1-5.4) M/mm3 Hgb 11.0 L (12.0-16.0) gm/dl Hct 34.6 L (35-47) % MCV 97.5 (78-100) fl MCH 30.9 (26-32) pg MCHC 31.8 L (32-36) g/dl RDW 14.6 H (11.5-14.0) % Plt Count 199 (150-450) K/mm3 MPV 10.0 H (6-9.5) fl Segmented Neutrophils 90 H (36.0-66.0) % Lymphocytes (Manual) 8 L (24-44) % Monocytes (Manual) 2 (0.0-12.0) % Differential Comment NORMAL Platelet Estimate NORMAL (NORMAL) Sodium 145 (136-145) mEq/L Potassium 3.5 3.4 L (3.5-5.1) mEq/L Chloride 110 H (98-107) mEq/L Carbon Dioxide 29.9 (21-32) mEq/L Anion Gap 8.2 (5-15) MEQ/L BUN 11 (9-20) mg/dL Creatinine 0.79 (0.55-1.30) mg/dl Estimated GFR > 60 ML/MIN Glucose 138 H (70-110) MG/DL Lactic Acid (0.4-2.0) Calcium 8.3 L (8.5-10.1) mg/dL Total Bilirubin 0.2 (0.2-1.0) mg/dL AST 19 (15-37) U/L ALT 37 (12-78) U/L Alkaline Phosphatase 63 (46-116) U/L Serum Total Protein 5.5 L (6.4-8.2) gm/dL Albumin 2.6 L (3.4-5.0) g/dL Lipase (73-393) U/L Radiology Exams: Radiology Procedures Category Date Time Status ABDOMEN AND PELVIS W/0 CONTRAS [CT] Stat Exams 05/28/16 08:12 Completed GUIDANCE FOR NEEDLE PLACEMENT [US] Routine Exams 05/28/16 Completed PICC LINE PLACEMENT Urgent Exams 05/28/16 11:46 Completed Assessment/Plan (1) COPD exacerbation Current Visit: Yes Status: Acute Assessment & Plan: mild improvement in wbc continue prednisone she is tolerating less O2 wheezing improving will cut back her morphine from 5 mg to 3 mg prn she still complais of uncontrolled pain and nausea ct abd did not help with source continue zosyn for now she has remained afebrile with no tachycardia and normal bp lactic acid back to normal Code(s): Josey44.1 - CHRONIC OBSTRUCTIVE PULMONARY DISEASE W (ACUTE) EXACERBATION (2) Anxiety Current Visit: Yes Status: Acute Code(s): F41.9 - ANXIETY DISORDER, UNSPECIFIED (3) Vomiting and diarrhea Current Visit: Yes Status: Acute Code(s): R11.10 - VOMITING, UNSPECIFIED; R19.7 - DIARRHEA, UNSPECIFIED (4) Marijuana abuse Current Visit: Yes Status: Chronic Code(s): F12.10 - CANNABIS ABUSE, UNCOMPLICATED (5) Seizure disorder Current Visit: Yes Status: Chronic Code(s): G40.909 - EPILEPSY, UNSP, NOT INTRACTABLE, WITHOUT STATUS EPILEPTICUS (6) Anemia Current Visit: Yes Status: Acute Code(s): D64.9 - ANEMIA, UNSPECIFIED (7) Hepatitis C Current Visit: Yes Status: Acute (8) Hypokalemia Current Visit: Yes Status: Acute Code(s): E87.6 - HYPOKALEMIA
[2016-05-29] MEDS ORDERED: MORPHINE SULFATE 4 MG INJ IV PRN (10:10)
[2016-05-29] MEDS: Klor Con 10 MEQ PO SCH ×2 (10:28→21:17)
[2016-05-29] MEDS: MORPHINE SULFATE 4 MG INJ IV PRN ×5 (11:17→23:48)
[2016-05-30] MEDS: DUONEB 0.5-3 MG/3 ml Neb IH SCH ×6 (02:50→22:51)
[2016-05-30] MEDS: Sodium Chloride 0.9% 1000 ML 1,000 ML IV SCH (03:22)
[2016-05-30] MEDS: MORPHINE SULFATE 4 MG INJ IV PRN ×2 (03:24→05:36)
[2016-05-30 04:07] LABS: Mean Cell Volume 96.5 fl (78-100); Mean Corpuscular Hemoglobin 31.4 pg (26-32); Mean Platelet Volume 10.2 fl (6-9.5); Platelet Count 164 K/mm3 (150-450); Red Blood Count 3.47 M/mm3 (4.1-5.4); Red Cell Distribution Width 14.6 % (11.5-14.0); White Blood Count 17.2 K/mm3 (4.0-10.5)
[2016-05-30 04:19] LABS: ANION GAP 10.3 MEQ/L (5-15); BLOOD UREA NITROGEN 10 mg/dL (9-20); CHLORIDE 109 mEq/L (98-107); Carbon Dioxide 29.3 mEq/L (21-32); Glucose 108 MG/DL (70-110); Potassium 3.3 mEq/L (3.5-5.1); SODIUM 145 mEq/L (136-145)
[2016-05-30 04:57] LABS: ANISOCYTOSIS 1+; BAND 1 % (0.0-2.0); Platelet Estimate NORMAL (NORMAL); Total Cells Counted 100
[2016-05-30] MEDS: Phenergan 25 MG INJ IV PRN ×3 (05:25→23:40)
[2016-05-30] MEDS: Zosyn 3.375GM/100 Ml D5W 100 ML IV SCH ×4 (05:25→23:41)
[2016-05-30] MEDS: Advair Hfa 115/21 Common canister IH SCH ×2 (06:43→18:59)
[2016-05-30] MEDS: KEPPRA 500 MG PO SCH (08:27)
[2016-05-30] MEDS: Neurontin 100 MG PO SCH ×3 (08:27→22:29)
[2016-05-30] MEDS: Klor Con 10 MEQ PO SCH ×3 (08:27→22:30)
[2016-05-30] MEDS: DELTASONE 20 MG PO SCH (08:27)
[2016-05-30] MEDS: DOXEPIN HCL PO SCH ×2 (08:27→22:29)
[2016-05-30] MEDS: Klonopin 0.5 MG PO SCH ×2 (08:27→22:29)
[2016-05-30] MEDS: PROTONIX 40 MG IV IV SCH (08:28)
[2016-05-30] MEDS: MORPHINE SULFATE 2 MG INJ IV PRN ×7 (09:06→23:40)
--- NOTE | 2016-05-30 18:56 | PCM.NOTE ---
Date and Time: 05/30/161851 Subjective Assessment: she continues to complain of pain in multiple sites including throughout the chest with coughing or moving and in the right arm where the picc is inserted now. She is eating better and formed stools now no vomiting. she continues to ask for the pain medication every 2 hours. she is still short of breath with minimal exertion Objective Exam General Appearance: thin Neurologic Exam: oriented x 3, cooperative Skin Exam: warm, dry Ears, Nose, Throat Exam: moist mucous membranes Neck Exam: normal inspection, non-tender, supple Respiratory Exam: prolonged expirations, wheezing Cardiovascular Exam: regular rate/rhythm, normal heart sounds, No murmur Gastrointestinal/Abdomen Exam: soft, normal bowel sounds, tenderness (diffuse to soft touch) Extremity Exam: normal inspection, No calf tenderness, No pedal edema Back Exam: normal inspection OBJECTIVE DATA Vital Signs: Vital Signs - 24 hr Temp Pulse Resp BP Pulse Ox 05/30/16 16:00 20 05/30/16 15:58 97.7 F 78 20 98/58 92 L 05/30/16 14:42 77 18 96 05/30/16 12:54 98.1 F 80 20 95/56 91 L 05/30/16 12:00 20 05/30/16 11:08 74 18 95 05/30/16 08:00 20 05/30/16 07:14 97.7 F 68 20 99/63 95 05/30/16 06:45 68 16 95 05/30/16 06:00 98 F 67 16 106/67 94 L 05/30/16 04:00 17 05/30/16 02:50 69 18 91 L 05/30/16 00:49 98.1 F 80 16 108/63 92 L 05/30/16 00:00 16 05/29/16 22:40 73 17 93 L 05/29/16 22:00 97.6 F 83 17 102/62 93 L 05/29/16 20:00 21 05/29/16 18:53 75 18 96 Oxygen-Last 24 hours O2 Percentage 2 Liters = 28% Pain Assessment - Last Documented Pain Intensity 9 Pain Scale Used 0-10 Pain Scale Intake and Output: Intake & Output 05/28/16 05/29/16 05/30/16 05/31/16 11:59 11:59 11:59 11:59 Intake Total 3420 4870 5388 1260 Output Total 1400 2250 3250 400 Balance 2019 -57 367 860 Weight 48.897 kg 49.532 kg 54.794 kg Lab Results: Lab Results-Last 24 Hours 05/30/16 05/30/16 Range/Units 03:30 03:30 WBC 17.2 H (4.0-10.5) K/mm3 RBC 3.47 L (4.1-5.4) M/mm3 Hgb 10.9 L (12.0-16.0) gm/dl Hct 33.5 L (35-47) % MCV 96.5 (78-100) fl MCH 31.4 (26-32) pg MCHC 32.5 (32-36) g/dl RDW 14.6 H (11.5-14.0) % Plt Count 164 (150-450) K/mm3 MPV 10.2 H (6-9.5) fl Segmented Neutrophils 84 H (36.0-66.0) % Band Neutrophils 1 (0.0-2.0) % Lymphocytes (Manual) 6 L (24-44) % Monocytes (Manual) 9 (0.0-12.0) % Differential Comment ABNORMAL Platelet Estimate NORMAL (NORMAL) Anisocytosis 1+ Sodium 145 (136-145) mEq/L Potassium 3.3 L (3.5-5.1) mEq/L Chloride 109 H (98-107) mEq/L Carbon Dioxide 29.3 (21-32) mEq/L Anion Gap 10.3 (5-15) MEQ/L BUN 10 (9-20) mg/dL Creatinine 0.69 (0.55-1.30) mg/dl Estimated GFR > 60 ML/MIN Glucose 108 (70-110) MG/DL Calcium 7.5 L (8.5-10.1) mg/dL Assessment/Plan (1) COPD exacerbation Current Visit: Yes Status: Acute Assessment & Plan: improving continue prednisone, zosyn, duoneb, still requiring intermittent O2 with any exertion the wbc still very elevated she has remained afebrile with no vital changes and has shown continued improvement blood cultures no growth. continue to monitor suspect steroid induced. strong concern for opiate addiction long discussion about this as well as treatment options and she denies this. States she only uses her prescribed medications and only takes for pain. will continue to cut back from 3mg to 2 mg q2h on the morphine and try to cut back to 1mg tonight plan for home tomorrow if continues to show improvement Code(s): J44.1 - CHRONIC OBSTRUCTIVE PULMONARY DISEASE W (ACUTE) EXACERBATION (2) Anxiety Current Visit: Yes Status: Acute Code(s): F41.9 - ANXIETY DISORDER, UNSPECIFIED (3) Vomiting and diarrhea Current Visit: Yes Status: Acute Code(s): R11.10 - VOMITING, UNSPECIFIED; R19.7 - DIARRHEA, UNSPECIFIED (4) Marijuana abuse Current Visit: Yes Status: Chronic Code(s): F12.10 - CANNABIS ABUSE, UNCOMPLICATED (5) Seizure disorder Current Visit: Yes Status: Chronic Code(s): G40.909 - EPILEPSY, UNSP, NOT INTRACTABLE, WITHOUT STATUS EPILEPTICUS (6) Anemia Current Visit: Yes Status: Acute Code(s): D64.9 - ANEMIA, UNSPECIFIED (7) Hepatitis C Current Visit: Yes Status: Acute (8) Hypokalemia Current Visit: Yes Status: Acute Code(s): E87.6 - HYPOKALEMIA
[2016-05-31] MEDS: DUONEB 0.5-3 MG/3 ml Neb IH SCH ×6 (02:52→22:55)
[2016-05-31] MEDS: MORPHINE SULFATE 2 MG INJ IV PRN ×6 (04:38→22:59)
[2016-05-31] MEDS: Zosyn 3.375GM/100 Ml D5W 100 ML IV SCH ×4 (05:38→23:54)
[2016-05-31 05:58] LABS: Mean Cell Volume 96.7 fl (78-100); Mean Corpuscular Hemoglobin 31.2 pg (26-32); Mean Platelet Volume 10.3 fl (6-9.5); Platelet Count 155 K/mm3 (150-450); Red Blood Count 3.65 M/mm3 (4.1-5.4); Red Cell Distribution Width 14.5 % (11.5-14.0); White Blood Count 15.3 K/mm3 (4.0-10.5)
[2016-05-31 05:59] LABS: ANION GAP 10.3 MEQ/L (5-15); BLOOD UREA NITROGEN 17 mg/dL (9-20); CHLORIDE 106 mEq/L (98-107); Carbon Dioxide 33.6 mEq/L (21-32); Glucose 96 MG/DL (70-110); Potassium 3.5 mEq/L (3.5-5.1); SODIUM 146 mEq/L (136-145)
[2016-05-31] MEDS: Advair Hfa 115/21 Common canister IH SCH ×2 (07:10→20:55)
[2016-05-31] MEDS ORDERED: MORPHINE SULFATE 2 MG INJ ONE (07:21)
[2016-05-31] MEDS: PROTONIX 40 MG IV IV SCH (10:26)
[2016-05-31] MEDS: Neurontin 100 MG PO SCH ×3 (10:27→21:39)
[2016-05-31] MEDS: DELTASONE 20 MG PO SCH (10:27)
[2016-05-31] MEDS: Klor Con 10 MEQ PO SCH ×2 (10:27→21:39)
[2016-05-31] MEDS: KEPPRA 500 MG PO SCH (10:28)
[2016-05-31] MEDS: Klonopin 0.5 MG PO SCH ×2 (10:28→21:39)
[2016-05-31] MEDS: DOXEPIN HCL PO SCH ×2 (10:28→21:39)
[2016-05-31 10:54] LABS: Eosinophil 4 % (0.00-3.0); Hypersegmented Polys 1+; Platelet Estimate NORMAL (NORMAL); Total Cells Counted 100
--- NOTE | 2016-05-31 11:49 | PCM.NOTE ---
Date and Time: 05/31/16 1144 Subjective Assessment: nauseated this am after eating fell twice last night when ambulating without call light she did not let the nursing staff know about it until they came for their routine rounds she denied any injury states she falls often at home she states she is scheduled for a port to be put in already by her primary but not sure who was doing it she is still complaining of pain in her chest abdomen arms and back constantly she feels weak on her feet she continues to need the O2 and gets short of breath with any exertion Objective Exam General Appearance: no apparent distress, thin Neurologic Exam: alert, oriented x 3, cooperative Skin Exam: warm, dry Eye Exam: pale conjunctivae, No scleral icterus Ears, Nose, Throat Exam: moist mucous membranes Neck Exam: non-tender, supple Respiratory Exam: rhonchi, wheezing, other (shallow breathing with deep breathing dependent crackles ausculatated) Cardiovascular Exam: regular rate/rhythm, No murmur Gastrointestinal/Abdomen Exam: soft, normal bowel sounds, No tenderness, No distention Extremity Exam: No calf tenderness, No pedal edema OBJECTIVE DATA Vital Signs: Vital Signs - 24 hr Temp Pulse Resp BP Pulse Ox 05/31/16 10:52 74 18 96 05/31/16 08:00 20 05/31/16 07:34 98.4 F 75 20 94/61 96 05/31/16 07:00 71 18 91 L 05/31/16 04:00 97.9 F 78 17 96/58 94 L 05/31/16 02:52 73 16 90 L 05/31/16 00:00 97.6 F 78 18 93/62 95 05/30/16 22:51 80 16 94 L 05/30/16 20:00 97.9 F 77 16 102/62 95 05/30/16 18:53 75 20 92 L 05/30/16 16:00 20 05/30/16 15:58 97.7 F 78 20 98/58 92 L 05/30/16 14:42 77 18 96 05/30/16 12:54 98.1 F 80 20 95/56 91 L 05/30/16 12:00 20 Oxygen-Last 24 hours O2 Percentage 2 Liters = 28% Pain Assessment - Last Documented Pain Intensity 8 Pain Scale Used 0-10 Pain Scale Intake and Output: Intake & Output 01/1105/29/16 05/30/16 05/31/16 11:59 11:59 11:59 11:59 Intake Total 3420 2193 3617 2040 Output Total 1400 2250 3250 1100 Balance 2019 367 940 Weight 48.897 kg 49.532 kg 54.794 kg 49.623 kg Lab Results: Lab Results-Last 24 Hours 05/31/16 05/31/16 Range/Units 05:35 05:35 WBC 15.3 H (4.0-10.5) K/mm3 RBC 3.65 L (4.1-5.4) M/mm3 Hgb 11.4 L (12.0-16.0) gm/dl Hct 35.3 (35-47) % MCV 96.7 (78-100) fl MCH 31.2 (26-32) pg MCHC 32.3 (32-36) g/dl RDW 14.5 H (11.5-14.0) % Plt Count 155 (150-450) K/mm3 MPV 10.3 H (6-9.5) fl Lymphocytes (Manual) 82 H (24-44) % Monocytes (Manual) 14 H (0.0-12.0) % Eosinophils (Manual) 4 H (0.00-3.0) % Differential Comment NORMAL Hypersegmented Polys 1+ Platelet Estimate NORMAL (NORMAL) Sodium 146 H (136-145) mEq/L Potassium 3.5 (3.5-5.1) mEq/L Chloride 106 (98-107) mEq/L Carbon Dioxide 33.6 H (21-32) mEq/L Anion Gap 10.3 (5-15) MEQ/L BUN 17 (9-20) mg/dL Creatinine 0.84 (0.55-1.30) mg/dl Estimated GFR > 60 ML/MIN Glucose 96 (70-110) MG/DL Calcium 8.8 (8.5-10.1) mg/dL Assessment/Plan (1) COPD exacerbation Current Visit: Yes Status: Acute Assessment & Plan: continue prednisone antibiotic wbc improving her weakness and falls. She does not want to go home on O2 but still requirring discussed 1 more day try the IS to see if this can help and home tomorrow with oxygen if still requiring or witohut if improved without it she seems more nausated since the morphine weaned now to 1mg q2h prn that she asks for every 2 to 3 hours discussed we will not be doing pain medications when she is discharged and further wean it now to every 3 hours as needed. Code(s): J44.1 - CHRONIC OBSTRUCTIVE PULMONARY DISEASE W (ACUTE) EXACERBATION (2) Anxiety Current Visit: Yes Status: Acute Code(s): F41.9 - ANXIETY DISORDER, UNSPECIFIED (3) Vomiting and diarrhea Current Visit: Yes Status: Acute Code(s): R11.10 - VOMITING, UNSPECIFIED; R19.7 - DIARRHEA, UNSPECIFIED (4) Marijuana abuse Current Visit: Yes Status: Chronic Code(s): F12.10 - CANNABIS ABUSE, UNCOMPLICATED (5) Seizure disorder Current Visit: Yes Status: Chronic Code(s): G40.909 - EPILEPSY, UNSP, NOT INTRACTABLE, WITHOUT STATUS EPILEPTICUS (6) Anemia Current Visit: Yes Status: Acute Code(s): D64.9 - ANEMIA, UNSPECIFIED (7) Hepatitis C Current Visit: Yes Status: Acute (8) Hypokalemia Current Visit: Yes Status: Acute Code(s): E87.6 - HYPOKALEMIA
[2016-05-31] MEDS: Phenergan 25 MG INJ IV PRN (17:49)
[2016-05-31] MEDS ORDERED: Sodium Chloride 0.9% 500 ML 500 ML IV ONE (18:59)
[2016-06-01] MEDS: MORPHINE SULFATE 2 MG INJ IV PRN ×4 (01:59→11:48)
[2016-06-01] MEDS: DUONEB 0.5-3 MG/3 ml Neb IH SCH ×3 (03:02→10:51)
[2016-06-01] MEDS: Zosyn 3.375GM/100 Ml D5W 100 ML IV SCH (05:26)
[2016-06-01 05:37] LABS: Mean Cell Volume 97.4 fl (78-100); Mean Corpuscular Hemoglobin 31.1 pg (26-32); Mean Platelet Volume 10.1 fl (6-9.5); Platelet Count 142 K/mm3 (150-450); Red Cell Distribution Width 14.5 % (11.5-14.0); White Blood Count 14.7 K/mm3 (4.0-10.5)
[2016-06-01] MEDS: Advair Hfa 115/21 Common canister IH SCH (06:52)
--- NOTE | 2016-06-01 09:04 | PCM.DCORD ---
- Discharge Discharge Date: 06/01/16 Disposition: Home, Self-Care Condition: Fair Prescriptions: Prednisone 10 mg [Deltasone 10 mg] 10 mg PO DAILY #19 tablet Medications: Home Medications Doxepin HCl 75 mg PO BID 10/27/12 [Confirmed 05/26/16] Clonazepam 0.5 mg [Klonopin 0.5 MG] 1 mg PO BID 01/31/16 [Confirmed ] Fluticasone/Vilanterol [Breo Ellipta 200-25 Mcg INH] 1 each IH DAILY 05/26/16 [ Confirmed 05/26/16] Gabapentin [Neurontin] 100 mg PO TID 05/26/16 [Confirmed 05/26/16] Levetiracetam [Keppra 500 mg ] 500 mg PO DAILY 05/26/16 [Confirmed ] Active Inpatient Medications Acetaminophen (Tylenol 325 Mg) 650 mg PO Q4H PRN PRN PRN Reason: PAIN AND/OR FEVER Stop: 06/26/16 08:33 Last Admin: 05/28/16 22:21 Dose: 650 mg Albuterol/Ipratropium (Duoneb 0.5-3 Mg/3 Ml Neb) 3 ml IH Q4HRT [facility] Stop: 06/25/16 18:59 Last Admin: 06/01/16 06:52 Dose: 3 ml Clonazepam (Klonopin 0.5 Mg) 1 mg PO BID [facility] Stop: 06/25/16 21:59 Last Admin: 05/31/16 21:39 Dose: 1 mg Doxepin HCl (Doxepin Hcl) 75 mg PO BID [facility] Stop: 06/26/16 09:59 Last Admin: 05/31/16 21:39 Dose: 75 mg Gabapentin (Neurontin 100 Mg) 100 mg PO TID [facility] Stop: 06/25/16 21:59 Last Admin: 05/31/16 21:39 Dose: 100 mg Heparin Sodium (Beef Lung) (Heparin Lock Flush 100 Units/Ml 5ml Syringe) 0 units IV UD PRN Stop: 06/27/16 13:31 Last Admin: 06/01/16 06:26 Dose: 500 units Piperacillin Sod/Tazobactam Sod (Zosyn 3.375gm/100 Ml D5w) 100 mls @ 100 mls/ hr IV Q6HT [facility] Stop: 06/26/16 00:00 Last Admin: 06/01/16 05:26 Dose: 100 mls/hr Levalbuterol HCl (Xopenex 1.25 Mg/0.5 Ml Ud Nebule) 1.25 mg IH Q2HPRN PRN Stop: 06/26/16 07:13 Last Admin: 05/27/16 21:57 Dose: 1.25 mg Levetiracetam (Keppra 500 Mg ) 500 mg PO DAILY [facility] Stop: 06/26/16 09:59 Last Admin: 05/31/16 10:28 Dose: 500 mg Morphine Sulfate (Morphine Sulfate 2 Mg Inj) 1 mg IV Q3H PRN PRN PRN Reason: PAIN Stop: 06/05/16 11:48 Last Admin: 06/01/16 08:28 Dose: 1 mg Pantoprazole Sodium (Protonix 40 Mg Iv) 40 mg IV Q24H [facility] Stop: 06/26/16 09:59 Last Admin: 05/31/16 10:26 Dose: 40 mg Potassium Chloride (Klor Con 10 Meq) 20 meq PO BID [facility] Stop: 06/29/16 09:59 Last Admin: 05/31/16 21:39 Dose: 20 meq Prednisone (Deltasone 20 Mg) 40 mg PO DAILY [facility] Stop: 06/27/16 09:59 Last Admin: 05/31/16 10:27 Dose: 40 mg Fluticasone/Salmeterol (Advair Hfa 115/21 Common Canister*) 2 puff IH BIDRT [facility] Stop: 06/26/16 06:59 Last Admin: 06/01/16 06:52 Dose: 2 puff Sodium Chloride (Sodium Chloride 3 Ml Ud Nebules) 3 ml IH PRN PRN Stop: 06/27/16 06:58 Instructions: Chronic Obstructive Pulmonary Disease, Quit Smoking Follow up with: LILIANA CLAY NP [Primary Care Provider] - Forms: Patient Portal Information
--- NOTE | 2016-06-01 09:04 | PCM.DS ---
Discharge Summary Date of Admission: 05/26/16 19:30 Date of Discharge: 06/01/16 Admitting Physician: ELAINE HADDAD Primary Care Provider: LILIANA CLAY Allergies Allergies aspirin Allergy (Verified 05/26/16 15:10) codeine [Codeine] Allergy (Verified 05/26/16 15:10) hydrocodone [Hydrocodone] Allergy (Verified 05/26/16 15:10) Hives oxycodone [Oxycodone] Allergy (Verified 05/26/16 15:10) Hives prochlorperazine edisylate [From Compazine] Allergy (Verified 05/26/16 15:10) prochlorperazine maleate [From Compazine] Allergy (Verified 05/26/16 15:10) Hospital Summary - Hospital Course Hospital Course: She presented with severe pain and shortness of breath. She was found to have leukocytosis that initially worsened after high dose iv steroids. She was treated for copd exacerbation with oxygen, iv steroids transitioned to po, duonebs, and she was treated with zosyn as it was initially started with the abdominal pain and luekocytosis. She did have CT abd/pelvis without appreciated abnormality. After this she changed where she stated she hurt to her chest and arm. She continued to slowly have her oxygen weaned. Her leukocytosis trended down. She had no fevers and no tachycardia throughout the admission. She denied any drug abuse or abuse of narcotic pain medications, but she did have repeated drug seeking behavior throughout the admission. She was a very difficulty vascular access and IV was lost on day 1 of admission and PICC was inserted without complications. She was trying very hard for us to leave this in at time of discharge but we explained in detail why this was not safe. We discussed we were not comfortable writing any pain medication at discharge as her symptoms appear to be chronic in nature and with her drug seeking behavior throughout the stay. She was offered services for addiction or depression and she denied any misuse or abuse of these medications. Her pain medication was weaned throughout her stay as the morphine was tapered down she did seem to become more alert. She did have weakness and reported she fell twice in her room. These were unwitnessed falls with no known injury. She got herself back in bed both times and told the nurse about the falls well after they had happened. We weaned her oxygen and on day of discharge she stated she still felt short of breath 6 min walk test was done with lowest saturation being 92% on room air. She did not show evidence of dyspnea during this. She was weak and thin and unstable which she claims has been her baseline for the last 3 years. - Vitals & Intake/Output Vital Signs: Vital Signs Temperature 98.6 F 06/01/16 06:59 Pulse Rate 82 06/01/16 06:59 Respiratory Rate 18 06/01/16 06:59 Blood Pressure 104/68 06/01/16 06:59 O2 Sat by Pulse Oximetry 94 L 06/01/16 06:59 Oxygen-Last Documented O2 Percentage 2 Liters = 28% Intake & Output: Intake & Output 05/29/16 05/30/16 05/31/16 06/01/16 11:59 11:59 11:59 11:59 Intake Total 2193 3617 2040 1820 Output Total 2250 3250 1100 800 Balance -57 577 102 3726 Weight 49.532 kg 54.794 kg 49.623 kg - Lab Result Diagrams: 06/01/16 05:20 05/31/16 05:35 Lab Results-Last 24 Hrs: Lab Results-Last 24 Hours 05/31/16 06/01/16 Range/Units 05:35 05:20 WBC 15.3 H 14.7 H (4.0-10.5) K/mm3 RBC 3.65 L 3.50 L (4.1-5.4) M/mm3 Hgb 11.4 L 10.9 L (12.0-16.0) gm/dl Hct 35.3 34.1 L (35-47) % MCV 96.7 97.4 (78-100) fl MCH 31.2 31.1 (26-32) pg MCHC 32.3 32.0 (32-36) g/dl RDW 14.5 H 14.5 H (11.5-14.0) % Plt Count 155 142 L (150-450) K/mm3 MPV 10.3 H 10.1 H (6-9.5) fl Lymphocytes (Manual) 82 H (24-44) % Monocytes (Manual) 14 H (0.0-12.0) % Eosinophils (Manual) 4 H (0.00-3.0) % Differential Comment NORMAL Hypersegmented Polys 1+ Platelet Estimate NORMAL (NORMAL) - Radiology Exams Ordered Rad Exams-Entire Visit: Radiology Procedures Category Date Time Status CHEST 1 VIEW (PORTABLE) Routine Exams 06/01/16 09:03 Ordered - Procedures and Test Procedures and Tests throughout Hospitalization: Therapy Orders & Screens 05/26/16 18:59 Oxygen NASAL CANNULA 2 lpm Comment: Diagnosis: Shortness of Breath Respiratory Nebulizer Q4H Comment: Diagnosis: Shortness of Breath 05/26/16 20:49 Respiratory Therapy Assessment ONCE Comment: Diagnosis: Shortness of Breath 05/26/16 21:00 RT Screen per Nursing Assess ONCE Comment: Protocol Order Physician Instructions: Greater than 3 points order RT Admission Screen Reason For Exam: Triggered on Admission Diagnosis: Shortness of Breath Diagnosis: Shortness of Breath Pneumonia: Yes Home O2: No Asthma: No Home CPAP/BIPAP: No Home Nebs/MDI: Yes Total Points: 8 Smoking Cessation Education ONCE Comment: Diagnosis: Shortness of Breath Smoking Status: Current every day smoker How long have you smoked: YRS Have you smoked in the past 12 months: Yes Do you dip or chew tobacco: No If,Former Smoker,when did you quit: 5days ago was unable 05/27/16 07:00 Respiratory MDI BID Comment: Diagnosis: Shortness of Breath 05/27/16 22:00 neb [Respiratory Nebulizer] UD Comment: XOPENEX Q2PRN Diagnosis: Shortness of Breath 05/31/16 11:42 Incentive Spirometry Assessmen UD Comment: Diagnosis: Shortness of Breath 06/01/16 09:04 Qualify for Home Oxygen TODAY Comment: Diagnosis: Shortness of Breath Discharge Exam General Appearance: no apparent distress, thin Neurologic Exam: oriented x 3, cooperative, No normal mood/affect (depressed affect) Skin Exam: warm, dry Eye Exam: pale conjunctivae, No scleral icterus Ears, Nose, Throat Exam: moist mucous membranes Neck Exam: non-tender, supple Lymphatic Exam: No adenopathy Respiratory Exam: wheezing, No respiratory distress, No crackles/rales Cardiovascular Exam: regular rate/rhythm, normal heart sounds, No murmur, No edema Gastrointestinal/Abdomen Exam: soft, normal bowel sounds, tenderness (diffuse), No guarding, No ecchymosis, No rebound Extremity Exam: normal inspection, No calf tenderness, No pedal edema Back Exam: normal inspection, No rash Final Diagnosis/Problem List - Final Discharge Diagnosis/Problem (1) COPD exacerbation Status: Acute (2) Anxiety Status: Acute (3) Vomiting and diarrhea Status: Acute (4) Marijuana abuse Status: Chronic (5) Seizure disorder Status: Chronic (6) Anemia Status: Acute (7) Hepatitis C Status: Acute (8) Hypokalemia Status: Acute - Discharge Discharge Date: 06/01/16 Disposition: Home, Self-Care Condition: Fair Prescriptions: Prednisone 10 mg [Deltasone 10 mg] 10 mg PO DAILY #19 tablet Medications: Home Medications Doxepin HCl 75 mg PO BID 10/27/12 [Confirmed 05/26/16] Clonazepam 0.5 mg [Klonopin 0.5 MG] 1 mg PO BID 01/31/16 [Confirmed ] Fluticasone/Vilanterol [Breo Ellipta 200-25 Mcg INH] 1 each IH DAILY 05/26/16 [ Confirmed 05/26/16] Gabapentin [Neurontin] 100 mg PO TID 05/26/16 [Confirmed 05/26/16] Levetiracetam [Keppra 500 mg ] 500 mg PO DAILY 05/26/16 [Confirmed ] Prednisone 10 mg [Deltasone 10 mg] 10 mg PO DAILY #19 tablet 06/01/16 Active Inpatient Medications Acetaminophen (Tylenol 325 Mg) 650 mg PO Q4H PRN PRN PRN Reason: PAIN AND/OR FEVER Stop: 06/26/16 08:33 Last Admin: 05/28/16 22:21 Dose: 650 mg Albuterol/Ipratropium (Duoneb 0.5-3 Mg/3 Ml Neb) 3 ml IH Q4HRT [facility] Stop: 06/25/16 18:59 Last Admin: 06/01/16 06:52 Dose: 3 ml Clonazepam (Klonopin 0.5 Mg) 1 mg PO BID [facility] Stop: 06/25/16 21:59 Last Admin: 05/31/16 21:39 Dose: 1 mg Doxepin HCl (Doxepin Hcl) 75 mg PO BID [facility] Stop: 06/26/16 09:59 Last Admin: 05/31/16 21:39 Dose: 75 mg Gabapentin (Neurontin 100 Mg) 100 mg PO TID [facility] Stop: 06/25/16 21:59 Last Admin: 05/31/16 21:39 Dose: 100 mg Heparin Sodium (Beef Lung) (Heparin Lock Flush 100 Units/Ml 5ml Syringe) 0 units IV UD PRN Stop: 06/27/16 13:31 Last Admin: 06/01/16 06:26 Dose: 500 units Piperacillin Sod/Tazobactam Sod (Zosyn 3.375gm/100 Ml D5w) 100 mls @ 100 mls/ hr IV Q6HT [facility] Stop: 06/26/16 00:00 Last Admin: 06/01/16 05:26 Dose: 100 mls/hr Levalbuterol HCl (Xopenex 1.25 Mg/0.5 Ml Ud Nebule) 1.25 mg IH Q2HPRN PRN Stop: 06/26/16 07:13 Last Admin: 05/27/16 21:57 Dose: 1.25 mg Levetiracetam (Keppra 500 Mg ) 500 mg PO DAILY [facility] Stop: 06/26/16 09:59 Last Admin: 05/31/16 10:28 Dose: 500 mg Morphine Sulfate (Morphine Sulfate 2 Mg Inj) 1 mg IV Q3H PRN PRN PRN Reason: PAIN Stop: 06/05/16 11:48 Last Admin: 06/01/16 08:28 Dose: 1 mg Pantoprazole Sodium (Protonix 40 Mg Iv) 40 mg IV Q24H [facility] Stop: 06/26/16 09:59 Last Admin: 05/31/16 10:26 Dose: 40 mg Potassium Chloride (Klor Con 10 Meq) 20 meq PO BID [facility] Stop: 06/29/16 09:59 Last Admin: 05/31/16 21:39 Dose: 20 meq Prednisone (Deltasone 20 Mg) 40 mg PO DAILY [facility] Stop: 06/27/16 09:59 Last Admin: 05/31/16 10:27 Dose: 40 mg Fluticasone/Salmeterol (Advair Hfa 115/21 Common Canister*) 2 puff IH BIDRT [facility] Stop: 06/26/16 06:59 Last Admin: 06/01/16 06:52 Dose: 2 puff Sodium Chloride (Sodium Chloride 3 Ml Ud Nebules) 3 ml IH PRN PRN Stop: 06/27/16 06:58 Instructions: Chronic Obstructive Pulmonary Disease, Quit Smoking Follow up with: LILIANA CLAY NP [Primary Care Provider] - Call for Appointment Forms: Discharge Instructions, Patient Portal Information
[2016-06-01] MEDS: Klonopin 0.5 MG PO SCH (09:27)
[2016-06-01] MEDS: KEPPRA 500 MG PO SCH (09:27)
[2016-06-01] MEDS: DELTASONE 20 MG PO SCH (09:27)
[2016-06-01] MEDS: DOXEPIN HCL PO SCH (09:28)
[2016-06-01] MEDS: PROTONIX 40 MG IV IV SCH (09:28)
[2016-06-01] MEDS: Klor Con 10 MEQ PO SCH (09:28)
[2016-06-01] MEDS: Neurontin 100 MG PO SCH (09:28)
[2016-06-01 11:47] VITALS: BP 94/61; PULSE 85; O2SAT 94
--- NOTE | 2016-06-01 20:24 | XRAY ---
Indication: Cough. Comparison: May 26, 2016 Portable chest remains clear. Heart is not enlarged. Vascularity normal. New right arm PICC line with the tip projecting over the SVC. Impression: Nonacute chest. New right arm PICC line in good position. Comment: Preliminary interpretation was made by [facility]. No discrepancy.
== END 2016-06-01 12:15 | disposition home or self-care (01) | DRG 192 ==
LOC: ED 15:05 → MED SURG 19:30
PROVIDERS: ADMIT Family Medicine; ATTEND Family Medicine
DX: J44.1 Chronic obstructive pulmonary disease with (acute) exacerbation (principal); F41.9 Anxiety disorder, unspecified; R11.10 Vomiting, unspecified; R19.7 Diarrhea, unspecified; F12.10 Cannabis abuse, uncomplicated; G40.909 Epilepsy, unspecified, not intractable, without status epilepticus; D64.9 Anemia, unspecified; B19.20 Unspecified viral hepatitis C without hepatic coma; E87.6 Hypokalemia; J45.909 Unspecified asthma, uncomplicated; M19.90 Unspecified osteoarthritis, unspecified site; Z72.0 Tobacco use
CPT/HCPCS: 36000; 36415; 36569; 36600; 71010; 74176; 76942; 77001; 80048; 80053; 80164; 80307; 81002; 82375; 82803; 83605; 83690; 84132; 84484; 85025; 85027; 85379; 85610; 87040; 93005; 93041; 94640; 94760; 96360; 96361; 96374; 96375; 99284; A9270; C1769; J0456; J1170; J1642; J2270; J2405; J2543; J2550; J2930; J3480; P9612

== ENCOUNTER 2017-12-10 23:12 | Emergency (ER) | payer MEDICAID ==
--- NOTE | 2017-12-10 23:30 | ERPHSYRPT ---
- History of Present Illness Time Seen by Provider: 12/10/17 23:25 Source: patient, family Exam Limitations: no limitations Physician History: 52 y/o white female with h/o seizures but cannot take anything for them because they lower her bp too much. pt fell after a seizure and hit head on carpet. pts spouse witnessed post fall. seizure like activity of both hands. pt arrives awake, alert and oriented. no loss of bowel or urine. 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) Severity: mild Character of Deficits: none Deficits: no difficulties Baseline/Normal Cognition: alert oriented x 3 Current Cognition: alert oriented x 3 Baseline Gait: walks w/o assistance Associated Symptoms: headache Allergies/Adverse Reactions: aspirin Allergy (Verified 05/26/16 15:10) codeine [Codeine] Allergy (Verified 05/26/16 15:10) hydrocodone [Hydrocodone] Allergy (Verified 05/26/16 15:10) Hives oxycodone [Oxycodone] Allergy (Verified 05/26/16 15:10) Hives prochlorperazine edisylate [From Compazine] Allergy (Verified 05/26/16 15:10) prochlorperazine maleate [From Compazine] Allergy (Verified 05/26/16 15:10) Home Medications: Doxepin HCl 75 mg PO DAILY 10/27/12 [History] Clonazepam 0.5 mg [Klonopin 0.5 MG] 1 mg PO BID 01/31/16 [History] Fluticasone/Vilanterol [Breo Ellipta 200-25 Mcg INH] 1 each IH DAILY 05/26/16 [ History] Gabapentin [Neurontin] 100 mg PO TID 05/26/16 [History] Albuterol Sulfate [Ventolin Hfa] 18 gm IH .PRN 07/25/16 [History] Sennosides/Docusate Sodium [Doc-Q-Lax Tablet] 1 each PO .PRN 07/25/16 [History] Hx Tetanus, Diphtheria Vaccination/Date Given: Yes Hx Influenza Vaccination/Date Given: No Hx Pneumococcal Vaccination/Date Given: No - Review of Systems Constitutional: No Symptoms Eyes: No Symptoms Ears, Nose, & Throat: No Symptoms Respiratory: No Symptoms Cardiac: No Symptoms Abdominal/Gastrointestinal: No Symptoms Genitourinary Symptoms: No Symptoms Musculoskeletal: No Symptoms Skin: No Symptoms Neurological: No Symptoms Psychological: No Symptoms Endocrine: No Symptoms Hematologic/Lymphatic: No Symptoms Immunological/Allergic: No Symptoms All Other Systems: Reviewed and Negative - Past Medical History Pertinent Past Medical History: Yes Neurological History: Seizures, Stroke ENT History: No Pertinent History Cardiac History: No Pertinent History Respiratory History: Asthma, Pneumonia Endocrine Medical History: No Pertinent History Musculoskeletal History: Arthritis, Degenerative Disk Disease, Osteoarthritis, Other GI Medical History: Other History: No Pertinent History Psycho-Social History: Anxiety, Depression Female Reproductive Disorders: Other Other Medical History: ADHEASIONS - Past Surgical History Past Surgical History: Yes Neuro Surgical History: No Pertinent History Cardiac: No Pertinent History Respiratory: No Pertinent History Gastrointestinal: Cholecystectomy Female Surgical History: Hysterectomy Other Surgical History: C SECTIONS X 6 - Social History Smoking Status: Current every day smoker How long have you smoked: YRS Exposure to second hand smoke: Yes Alcohol Use: None Drug Use: none Patient Lives Alone: No Significant Family History: no pertinent family hx - Nursing Vital Signs Nursing Vital Signs: Initial Vital Signs Temperature 98.1 F 12/10/17 23:13 Pulse Rate 100 H 12/10/17 23:13 Respiratory Rate 20 12/10/17 23:13 Blood Pressure 132/88 12/10/17 23:13 O2 Sat by Pulse Oximetry 96 12/10/17 23:13 Pain Scale Pain Intensity 9 - Marah Coma Scale Best Eye Response ([place]): (4) open spontaneously Best Verbal Response ([place]): (5) oriented Best Motor Response ([place]): (6) obeys commands [place] Total: 15 - Physical Exam General Appearance: no apparent distress, alert, anxiety Eye Exam: bilateral eye: normal inspection, PERRL, EOMI Ears, Nose, Throat Exam: normal ENT inspection Neck Exam: normal inspection, non-tender, supple, full range of motion Respiratory: normal breath sounds, lungs clear, airway intact, No chest tenderness, No respiratory distress, No accessory muscle use, No wheezing, No stridor Cardiovascular: regular rate/rhythm, normal heart sounds Gastrointestinal: soft, normal bowel sounds, No tenderness, No guarding, No rebound Pelvic Exam: not done Rectal Exam: deferred Back Exam: normal inspection, normal range of motion Extremity Exam: normal inspection, normal range of motion, pelvis stable Mental Status: alert, oriented x 3, cooperative, No agitated, No uncooperative, No disoriented to person, No disoriented to place, No disoriented to time, 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 Exam: normal hearing, normal speech, PERRL Coordination/Gait: normal finger to nose, normal gait, normal cerebellar function Motor/Sensory: no motor deficit, no sensory deficit, no pronator drift Skin Exam: normal color, warm, dry SpO2 Interpretation: normal Oxygen Delivery: Room Air - Course Nursing assessment & vital signs reviewed: Yes Ordered Tests: Active Orders 24 hr Category Date Time Status IV Insertion STAT Care 12/10/17 23:44 Active CMP Stat Lab 12/10/17 23:44 Completed Medication Summary Discontinued Medications Generic Name Dose Route Start Last Admin Trade Name Freq PRN Reason Stop Dose Admin Acetaminophen 650 mg 12/11/17 00:50 12/11/17 00:56 Tylenol 325 Mg PO 12/11/17 00:51 650 mg STAT STA Administration Acetaminophen Confirm 12/11/17 00:53 Tylenol 325 Mg Administered 12/11/17 00:54 Dose 650 mg .ROUTE .STK-MED ONE Sodium Chloride 500 mls @ 999 mls/hr 12/10/17 23:44 12/11/17 00:16 Sodium Chloride 0.9% 1000 Ml IV 12/11/17 00:14 Not Given .Q31M STA Morphine Sulfate 2 mg 12/11/17 01:30 12/11/17 01:38 Morphine Sulfate 2 Mg Inj IM 12/11/17 01:31 2 mg STAT ONE Administration Morphine Sulfate Confirm 12/11/17 01:32 Morphine Sulfate 2 Mg Inj Administered 12/11/17 01:33 Dose 2 mg .ROUTE .STK-MED ONE Ondansetron HCl 4 mg 12/11/17 01:39 12/11/17 01:42 Zofran Odt 4 Mg PO 12/11/17 01:40 4 mg STAT ONE Administration Ondansetron HCl Confirm 12/11/17 01:40 Zofran Odt 4 Mg Administered 12/11/17 01:41 Dose 4 mg .ROUTE .STK-MED ONE Lab/Rad Data: Laboratory Result Diagrams 12/11/17 00:15 Laboratory Results 12/11/17 12/10/17 12/10/17 Range/Units 00:15 00:45 00:00 Sodium 140 (137-145) mmol/L Potassium 3.7 (3.5-5.1) mmol/L Chloride 106 (98-107) mmol/L Carbon Dioxide 24 (22-30) mmol/L Anion Gap 13.0 (5-15) MEQ/L BUN 9 (7-17) mg/dL Creatinine 0.75 (0.52-1.04) mg/dL Estimated GFR > 60.0 ML/MIN Glucose 175 H (74-106) mg/dL Calcium 9.0 (8.4-10.2) mg/dL Total Bilirubin 0.40 (0.2-1.3) mg/dL AST 315 H (14-36) U/L ALT 259 H (0-35) U/L Alkaline Phosphatase 273 H (38-126) U/L Serum Total Protein 7.0 (6.3-8.2) g/dL Albumin 3.9 (3.5-5.0) g/dL Ur Collection Type VOID Urine Color YELLOW (YELLOW) Urine Appearance CLEAR (CLEAR) Urine pH 6.0 (5-6) Ur Specific [place] 1.010 (1.005-1.025) Urine Protein NEGATIVE (Negative) Urine Ketones NEGATIVE (NEGATIVE) Urine Blood NEGATIVE (0-5) Tomas/ul Urine Nitrite NEGATIVE (NEGATIVE) Urine Bilirubin NEGATIVE (NEGATIVE) Urine Urobilinogen NORMAL (0-1) mg/dL Ur Leukocyte Esterase NEGATIVE (NEGATIVE) Urine Culture Reflexed NO (NO) Urine Glucose NEGATIVE (NEGATIVE) mg/dL Urine Opiates Level NEGATIVE (NEGATIVE) Ur Methadone NEGATIVE (NEGATIVE) Urine Barbiturates NEGATIVE (NEGATIVE) Ur Phencyclidine (PCP) NEGATIVE (NEGATIVE) Urine Amphetamine NEGATIVE (NEGATIVE) U Benzodiazepine Level NEGATIVE (NEGATIVE) Urine Cocaine NEGATIVE (NEGATIVE) Urine Marijuana (THC) POSITIVE (NEGATIVE) Specimen Received 12/11 0000 - Progress Progress: improved, re-examined Progress Note: 12/11/17 01:46 reviewed results of labs and ct scan head. pt has h/o hep b. pt sx improved Counseled pt/family regarding: lab results, diagnosis, need for follow-up, rad results - Departure Time of Disposition: 01:47 Departure Disposition: Home Clinical Impression: Seizure, Fall, Head injury, Elevated liver enzymes Condition: Stable Critical Care Time: No Referrals: LILIANA CLAY NP [Primary Care Provider] - Additional Instructions: follow up with your primary doctor for further management. follow up with your GI doctor for elevated liver enzymes
[2017-12-11] MEDS ORDERED: TYLENOL 325 MG PO STA (00:50)
[2017-12-11] MEDS ORDERED: TYLENOL 325 MG ONE (00:53)
[2017-12-11 01:06] LABS: Appearance CLEAR (CLEAR); Bilirubin NEGATIVE (NEGATIVE); Blood NEGATIVE Ery/ul (0-5); Glucose NEGATIVE (NEGATIVE); Ketones NEGATIVE (NEGATIVE); Leukocyte Esterase NEGATIVE (NEGATIVE); Nitrite NEGATIVE (NEGATIVE); Protein,Urine Dip NEGATIVE (Negative); Urobilinogen NORMAL mg/dL (0-1)
[2017-12-11 01:11] LABS: Amphetamine,Urine NEGATIVE (NEGATIVE); Barbiturate,Urine NEGATIVE (NEGATIVE); Benzodiazepine,Urine NEGATIVE (NEGATIVE); Cocaine,Urine NEGATIVE (NEGATIVE); Methadone,Urine NEGATIVE (NEGATIVE); Opiate,Urine NEGATIVE (NEGATIVE); PCP,Urine NEGATIVE (NEGATIVE); THC,Urine POSITIVE (NEGATIVE)
[2017-12-11 01:30] LABS: ALBUMIN 3.9 g/dL (3.5-5.0); ALKALINE PHOSPHATASE 273 U/L (38-126); BLOOD UREA NITROGEN 9 mg/dL (7-17); CHLORIDE 106 mmol/L (98-107); Carbon Dioxide 24 mmol/L (22-30); Creatinine 1 0.75 mg/dL (0.52-1.04); Glucose 175 mg/dL (74-106); Potassium 3.7 mmol/L (3.5-5.1); SGOT/AST 315 U/L (14-36); SGPT/ALT 259 U/L (0-35); SODIUM 140 mmol/L (137-145)
[2017-12-11] MEDS ORDERED: MORPHINE SULFATE 2 MG INJ IM ONE (01:30)
[2017-12-11] MEDS ORDERED: MORPHINE SULFATE 2 MG INJ ONE (01:32)
[2017-12-11] MEDS ORDERED: ZOFRAN ODT 4 MG PO ONE (01:39)
[2017-12-11] MEDS ORDERED: ZOFRAN ODT 4 MG ONE (01:40)
[2017-12-11 01:44] VITALS: BP 130/82; PULSE 80; O2SAT 95
--- NOTE | 2017-12-11 08:59 | XRAY ---
Indication: Head injury following seizure. Multiple contiguous axial images obtained through the head without contrast. Comparison: None. Normal appearing brain parenchyma, ventricles, and bony calvarium. Visualized paranasal sinuses and mastoid air cells are clear. Impression: Normal CT head without contrast exam. Comment: Preliminary interpretation was made by [facility]. No discrepancy. CT DI 51.90
== END 2017-12-11 02:05 | disposition home or self-care (01) ==
LOC: ED 23:12
DX: R56.9 Unspecified convulsions (principal); S09.90XA Unspecified injury of head, initial encounter; R74.8 Abnormal levels of other serum enzymes; W18.30XA Fall on same level, unspecified, initial encounter; Y92.009 Unspecified place in unspecified non-institutional (private) residence as the place of occurrence of the external cause; Z79.899 Other long term (current) drug therapy
CPT/HCPCS: 36415; 70450; 80053; 80307; 81002; 96372; 99284; J2270; Q0162; A9270-GY

== ENCOUNTER 2018-02-16 16:27 | Observation (INO) | payer MEDICAID ==
[2018-02-16] MEDS ORDERED: Sodium Chloride 0.9% 1000 ML 1,000 ML IV STA (16:31)
[2018-02-16] MEDS ORDERED: THIAMINE 200 MG/2 ML IV ONE (16:32)
--- NOTE | 2018-02-16 16:42 | ERPHSYRPT ---
- History of Present Illness Time Seen by Provider: 02/16/18 16:37 Source: patient, EMS Physician History: 52-year-old white female with history of seizures, strokes, asthma, arthritis, degenerative disease, anxiety, depression Patient arrives with complaint of altered mental status found crawling around on the floor by medics. Patient is not really sure what happened. Patient appears to be quite somnolent on arrival she is however answering questions moving extremities to command. Past medical history includes seizures, strokes, pneumonia asthma, arthritis, degenerative disc disease, osteoarthritis, anxiety, depression. Past surgical history includes cholecystectomy, hysterectomy, multiple times. Timing/Duration: today Severity: moderate Associated Symptoms: other (patient found crawling around on the floor), No nausea, No vomiting, No abdominal pain, No shortness of breath, No heartburn, No diaphoresis, No cough, No chills, No chest pain, No fever, No headaches, No loss of appetite, No malaise, No rash, No syncope, No seizure, No weakness Allergies/Adverse Reactions: aspirin Allergy (Verified 02/16/18 16:49) codeine [Codeine] Allergy (Verified 02/16/18 16:49) hydrocodone [Hydrocodone] Allergy (Verified 02/16/18 16:49) Hives oxycodone [Oxycodone] Allergy (Verified 02/16/18 16:49) Hives prochlorperazine edisylate [From Compazine] Allergy (Verified 02/16/18 16:49) prochlorperazine maleate [From Compazine] Allergy (Verified 02/16/18 16:49) Home Medications: Doxepin HCl 75 mg PO DAILY 10/27/12 [History] Clonazepam 0.5 mg [Klonopin 0.5 MG] 1 mg PO BID 01/31/16 [History] Fluticasone/Vilanterol [Breo Ellipta 200-25 Mcg INH] 1 each IH DAILY 05/26/16 [ History] Gabapentin [Neurontin] 100 mg PO TID 05/26/16 [History] Albuterol Sulfate [Ventolin Hfa] 18 gm IH .PRN 07/25/16 [History] Levetiracetam 500 mg PO BID 02/16/18 [History] Hx Tetanus, Diphtheria Vaccination/Date Given: Yes Hx Influenza Vaccination/Date Given: No Hx Pneumococcal Vaccination/Date Given: No - Review of Systems Constitutional: No Fever, No Chills Eyes: No Symptoms Ears, Nose, & Throat: No Symptoms Respiratory: No Cough, No Dyspnea Cardiac: No Chest Pain, No Edema, No Syncope Abdominal/Gastrointestinal: No Abdominal Pain, No Nausea, No Vomiting, No Diarrhea Genitourinary Symptoms: No Dysuria Musculoskeletal: No Back Pain, No Neck Pain Skin: No Rash Neurological: Other (patient found crawling on the floor my medics ), No Dizziness, No Focal Weakness, No Gait Changes, No Headache, No Irritability, No Lethargy, No Paralysis, No Parasthesia, No Seizure, No Sensory Changes, No Speech Changes, No Tics, No Tremors, No Vertigo Psychological: No Symptoms Endocrine: No Symptoms All Other Systems: Reviewed and Negative - Past Medical History Pertinent Past Medical History: Yes Neurological History: Seizures, Stroke ENT History: No Pertinent History Cardiac History: No Pertinent History Respiratory History: Asthma, Pneumonia Endocrine Medical History: No Pertinent History Musculoskeletal History: Arthritis, Degenerative Disk Disease, Osteoarthritis, Other GI Medical History: Other History: No Pertinent History Psycho-Social History: Anxiety, Depression Female Reproductive Disorders: Other Other Medical History: ADHEASIONS - Past Surgical History Past Surgical History: Yes Neuro Surgical History: No Pertinent History Cardiac: No Pertinent History Respiratory: No Pertinent History Gastrointestinal: Cholecystectomy Female Surgical History: Hysterectomy Other Surgical History: C SECTIONS X 6 - Social History Smoking Status: Current every day smoker How long have you smoked: YRS Exposure to second hand smoke: Yes Alcohol Use: None Drug Use: none Patient Lives Alone: No Significant Family History: no pertinent family hx - Nursing Vital Signs Nursing Vital Signs: Initial Vital Signs Temperature 97.8 F 02/16/18 16:34 Pulse Rate 99 H 02/16/18 16:34 Respiratory Rate 16 02/16/18 16:34 Blood Pressure 141/86 02/16/18 16:34 O2 Sat by Pulse Oximetry 95 02/16/18 16:34 Pain Scale Pain Intensity 9 - Physical Exam General Appearance: other (well-developed white female, somnolent but arouses on arrival full range of motion all extremities, cranial nerves II throgh 12 intact) Eye Exam: PERRL/EOMI, other (pupils appear to be large, reactive, fundi are unremarkable) Ears, Nose, Throat Exam: normal ENT inspection, TMs normal, pharynx normal, moist mucous membranes Neck Exam: normal inspection, non-tender, supple, full range of motion Respiratory Exam: normal breath sounds, lungs clear, No respiratory distress Cardiovascular Exam: regular rate/rhythm, normal heart sounds, normal peripheral pulses Gastrointestinal/Abdomen Exam: soft, normal bowel sounds, No tenderness, No mass Back Exam: normal inspection, normal range of motion, No CVA tenderness, No vertebral tenderness Extremity Exam: normal inspection, normal range of motion, pelvis stable Neurologic Exam: alert, oriented x 3, cooperative, cable assembler II-XII nml as tested, normal mood/affect, nml cerebellar function, nml station & gait, sensation nml, No motor deficits Skin Exam: normal color, warm, dry, No rash SpO2 Interpretation: normal - Course Nursing assessment & vital signs reviewed: Yes EKG Interpreted by Me: RATE (91 bpm), Sinus Rhythm, Left [place] Deviation, Other ( EKG: Sinus rhythm 91 bpm left axis deviation no acute ST or T wave changes) - CT Exams Head CT Interpretation: Discussed w/radiologist (CT head: Stable normal CT head compared to December 10, 2017) Cervical Spine CT Interpretation: Discussed w/radiologist (CT C-spine: No comparisons. Minimal C5 C6 degenerative disc disease and tiny right thyroid nodule/cyst otherwise negative) Ordered Tests: Active Orders 24 hr Category Date Time Status Accucheck STAT Care 02/16/18 16:31 Active EKG-ER Only STAT Care 02/16/18 16:32 Active IV Insertion STAT Care 02/16/18 17:13 Active Orthostatic Vital Signs STAT Care 02/16/18 18:29 Active Pulse Oximetry (ED) STAT Care 02/16/18 16:31 Active CERVICAL SPINE WO CONTRAST [CT] Stat Exams 02/16/18 17:12 Taken HEAD WITHOUT CONTRAST [CT] Stat Exams 02/16/18 17:09 Taken ACETAMINOPHEN Routine Lab 02/16/18 17:03 Completed AMYLASE Routine Lab 02/16/18 17:03 Completed CBC W DIFF Stat Lab 02/16/18 16:31 Completed CMP Routine Lab 02/16/18 17:03 Completed ETHYL ALCOHOL Routine Lab 02/16/18 17:03 Completed LIPASE Routine Lab 02/16/18 17:03 Completed SALICYLATE Routine Lab 02/16/18 17:03 Completed TROPONIN Q3H Lab 02/16/18 17:03 Completed TROPONIN Q3H Lab 02/16/18 19:45 Ordered TROPONIN Q3H Lab 02/16/18 22:45 Ordered TROPONIN Q3H Lab 02/17/18 01:45 Ordered TROPONIN Q3H Lab 02/17/18 04:45 Ordered UA W/RFX UR CULTURE Stat Lab 02/16/18 17:45 Completed Urine Triage Profile Stat Lab 02/16/18 17:45 Completed Transfer Order Routine Transfer 02/16/18 Ordered Medication Summary Discontinued Medications Generic Name Dose Route Start Last Admin Trade Name Freq PRN Reason Stop Dose Admin Sodium Chloride 1,000 mls @ 999 mls/hr 02/16/18 16:31 02/16/18 16:57 Sodium Chloride 0.9% 1000 Ml IV 02/16/18 17:31 999 mls/hr .Q1H1M STA Administration Sodium Chloride Confirm 02/16/18 16:56 Sodium Chloride 0.9% 1000 Ml Administered 02/16/18 16:57 Dose 1,000 mls @ ud .ROUTE .STK-MED ONE Thiamine HCl 100 mg 02/16/18 16:32 02/16/18 16:57 Thiamine 200 Mg/2 Ml IV 02/16/18 16:33 200 mg STAT ONE Administration Thiamine HCl Confirm 02/16/18 16:56 Thiamine 200 Mg/2 Ml Administered 02/16/18 16:57 Dose 200 mg .ROUTE .STK-MED ONE Lab/Rad Data: Laboratory Result Diagrams 02/16/18 16:31 02/16/18 17:03 Laboratory Results 02/16/18 02/16/18 02/16/18 Range/Units 17:45 17:45 17:03 WBC (4.0-10.5) K/mm3 RBC (4.1-5.4) M/mm3 Hgb (12.0-16.0) gm/dl Hct (35-47) % MCV (78-100) fl MCH (26-32) pg MCHC (32-36) g/dl RDW (11.5-14.0) % Plt Count (150-450) K/mm3 MPV (6-9.5) fl Gran % (36.0-66.0) % Eos # (Auto) (0-0.5) Absolute Lymphs (auto) (1.0-4.6) Absolute Monos (auto) (0.0-1.3) Lymphocytes % (24.0-44.0) % Monocytes % (0.0-12.0) % Eosinophils % (0.00-5.0) % Basophils % (0.0-0.4) % Absolute Granulocytes (1.4-6.9) Basophils # (0-0.4) Sodium 142 (137-145) mmol/L Potassium 4.7 (3.5-5.1) mmol/L Chloride 107 (98-107) mmol/L Carbon Dioxide 25 (22-30) mmol/L Anion Gap 15.0 (5-15) MEQ/L BUN 9 (7-17) mg/dL Creatinine 0.75 (0.52-1.04) mg/dL Estimated GFR > 60.0 ML/MIN Glucose 92 (74-106) mg/dL Calcium 9.7 (8.4-10.2) mg/dL Total Bilirubin 0.40 (0.2-1.3) mg/dL AST 135 H (14-36) U/L ALT 149 H (0-35) U/L Alkaline Phosphatase 156 H (38-126) U/L Troponin I < 0.012 (0.000-0.034) ng/mL Serum Total Protein 7.1 (6.3-8.2) g/dL Albumin 4.1 (3.5-5.0) g/dL Amylase 41 (30-110) U/L Lipase 61 (23-300) U/L Urine Color YELLOW (YELLOW) Urine Appearance CLEAR (CLEAR) Urine pH 6.0 (5-6) Ur Specific [place] 1.013 (1.005-1.025) Urine Protein NEGATIVE (Negative) Urine Ketones NEGATIVE (NEGATIVE) Urine Blood NEGATIVE (0-5) Tomas/ul Urine Nitrite NEGATIVE (NEGATIVE) Urine Bilirubin NEGATIVE (NEGATIVE) Urine Urobilinogen NEGATIVE (0-1) mg/dL Ur Leukocyte Esterase NEGATIVE (NEGATIVE) Urine WBC (Auto) 0-2 (0-5) /HPF Urine RBC (Auto) 0-2 (0-2) /HPF U Epithel Cells (Auto) NONE SEEN (FEW) /HPF Urine Mucus (Auto) SLIGHT (NEGATIVE) /HPF Urine Culture Reflexed NO (NO) Urine Glucose NEGATIVE (NEGATIVE) mg/dL Salicylates < 1.0 L (2-20) mg/dL Urine Opiates Level NEGATIVE (NEGATIVE) Ur Methadone NEGATIVE (NEGATIVE) Acetaminophen < 10 L (10-30) ug/ml Urine Barbiturates NEGATIVE (NEGATIVE) Ur Phencyclidine (PCP) NEGATIVE (NEGATIVE) Urine Amphetamine NEGATIVE (NEGATIVE) U Benzodiazepine Level NEGATIVE (NEGATIVE) Urine Cocaine NEGATIVE (NEGATIVE) Urine Marijuana (THC) POSITIVE (NEGATIVE) Ethyl Alcohol < 10 (0-10) mg/dL 02/16/18 Range/Units 16:31 WBC 7.1 (4.0-10.5) K/mm3 RBC 4.52 (4.1-5.4) M/mm3 Hgb 14.0 (12.0-16.0) gm/dl Hct 42.6 (35-47) % MCV 94.2 (78-100) fl MCH 31.0 (26-32) pg MCHC 32.9 (32-36) g/dl RDW 16.1 H (11.5-14.0) % Plt Count 167 (150-450) K/mm3 MPV 10.7 H (6-9.5) fl Gran % 47.1 (36.0-66.0) % Eos # (Auto) 0.18 (0-0.5) Absolute Lymphs (auto) 2.60 (1.0-4.6) Absolute Monos (auto) 0.97 (0.0-1.3) Lymphocytes % 36.5 (24.0-44.0) % Monocytes % 13.6 H (0.0-12.0) % Eosinophils % 2.5 (0.00-5.0) % Basophils % 0.3 (0.0-0.4) % Absolute Granulocytes 3.35 (1.4-6.9) Basophils # 0.02 (0-0.4) Sodium (137-145) mmol/L Potassium (3.5-5.1) mmol/L Chloride (98-107) mmol/L Carbon Dioxide (22-30) mmol/L Anion Gap (5-15) MEQ/L BUN (7-17) mg/dL Creatinine (0.52-1.04) mg/dL Estimated GFR ML/MIN Glucose (74-106) mg/dL Calcium (8.4-10.2) mg/dL Total Bilirubin (0.2-1.3) mg/dL AST (14-36) U/L ALT (0-35) U/L Alkaline Phosphatase (38-126) U/L Troponin I (0.000-0.034) ng/mL Serum Total Protein (6.3-8.2) g/dL Albumin (3.5-5.0) g/dL Amylase (30-110) U/L Lipase (23-300) U/L Urine Color (YELLOW) Urine Appearance (CLEAR) Urine pH (5-6) Ur Specific [place] (1.005-1.025) Urine Protein (Negative) Urine Ketones (NEGATIVE) Urine Blood (0-5) Tomas/ul Urine Nitrite (NEGATIVE) Urine Bilirubin (NEGATIVE) Urine Urobilinogen (0-1) mg/dL Ur Leukocyte Esterase (NEGATIVE) Urine WBC (Auto) (0-5) /HPF Urine RBC (Auto) (0-2) /HPF U Epithel Cells (Auto) (FEW) /HPF Urine Mucus (Auto) (NEGATIVE) /HPF Urine Culture Reflexed (NO) Urine Glucose (NEGATIVE) mg/dL Salicylates (2-20) mg/dL Urine Opiates Level (NEGATIVE) Ur Methadone (NEGATIVE) Acetaminophen (10-30) ug/ml Urine Barbiturates (NEGATIVE) Ur Phencyclidine (PCP) (NEGATIVE) Urine Amphetamine (NEGATIVE) U Benzodiazepine Level (NEGATIVE) Urine Cocaine (NEGATIVE) Urine Marijuana (THC) (NEGATIVE) Ethyl Alcohol (0-10) mg/dL - Progress Progress: improved Progress Note: 02/16/18 17:14 52-year-old white female with history of seizures, asthma, pneumonia, arthritis , degenerative disc disease anxiety and depression. Patient is brought by medics patient apparently with altered level of consciousness at home She was noted to be crawling around on the floor. Patient arrives somnolent but arouses easily she really doesn't know what happened. She has full range of motion of all extremities. Family arrives and states that the patient had fallen backwards and hit her head. Past medical history includes seizure, asthma, pneumonia, arthritis, degenerative disc disease, osteoarthritis, anxiety and depression Past surgical history includes cholecystectomy, hysterectomy, 6 Social history positive tobacco occasional alcohol denies illicit drug use. 02/16/18 17:17 Will go ahead and get a head CT and CT of the neck due to reported fall with head contusion and mental status change. Urine drug screen, EKG, CMP, CBC alcohol level salicylate and acetaminophen level are pending. Patient was given thiamine 100 mg IV and started on IV normal saline. 02/16/18 18:38 Patient is alert is somnolent. I had the nurse try to do orthostats on her which she is unable to stand up at this time. All extremities are moving she is oriented 3 answering questions well. I've talked further with the family family states that the patient appeared to have a seizure fell backwards hitting her head and then seized for minute on the floor. Patient appears to be stable head CT CT C-spine within normal limits EKG essentially normal. Urine drug screen positive for marijuana. CBC chemistry essentially normal Patient does state that she has a headache and wants pain meds. I really do not want to give this patient any narcotics at this time secondary to somnolence. I've offered the patient Tylenol she doesn't want any of this at this time, Will contact physician compo conveyor operator for hospital service for discussion as to possible placement on observation 02/16/18 18:45 I discussed the case with Dr. Velasco who is compo conveyor operator for hospital service. Will place patient on observation telemetry.Obtain every 4 hours neuro checks. Provide IV fluids. - Departure Time of Disposition: 18:54 Departure Disposition: Observation Clinical Impression: Witnessed seizure-like activity, Somnolence Head contusion Qualifiers: Encounter type: initial encounter Contusion of head detail: unspecified part of head Qualified Code(s): S00.93XA - Contusion of unspecified part of head, initial encounter Syncope Qualifiers: Syncope type: unspecified Qualified Code(s): R55 - Syncope and collapse Condition: Fair Critical Care Time: No Referrals: LILIANA CLYA NP [Primary Care Provider] -
[2018-02-16 16:56] LABS: BASOPHIL % 0.3 % (0.0-0.4); Basophil (Absolute #) 0.02 (0-0.4); Eosinophil % 2.5 % (0.00-5.0); Eosinophil (Absolute #) 0.18 (0-0.5); Granulocyte Absolute (ANC) 3.35 (1.4-6.9); Granulocytes % 47.1 % (36.0-66.0); Hematocrit 42.6 % (35-47); Lymphocytes % 36.5 % (24.0-44.0); Mean Cell Volume 94.2 fl (78-100); Mean Corpuscular Hgb Concent. 32.9 g/dl (32-36); Mean Platelet Volume 10.7 fl (6-9.5); Monocyte (Absolute #) 0.97 (0.0-1.3); Monocytes % 13.6 % (0.0-12.0); Red Blood Count 4.52 M/mm3 (4.1-5.4); Red Cell Distribution Width 16.1 % (11.5-14.0); White Blood Count 7.1 K/mm3 (4.0-10.5)
[2018-02-16] MEDS ORDERED: Sodium Chloride 0.9% 1000 ML 1,000 ML ONE (16:56)
[2018-02-16] MEDS ORDERED: THIAMINE 200 MG/2 ML ONE (16:56)
[2018-02-16 17:12] LABS: Platelet Count 167 K/mm3 (150-450)
[2018-02-16 17:36] LABS: ALBUMIN 4.1 g/dL (3.5-5.0); ALKALINE PHOSPHATASE 156 U/L (38-126); AMYLASE 41 U/L (30-110); BLOOD UREA NITROGEN 9 mg/dL (7-17); CHLORIDE 107 mmol/L (98-107); Calcium 9.7 mg/dL (8.4-10.2); Carbon Dioxide 25 mmol/L (22-30); Creatinine 1 0.75 mg/dL (0.52-1.04); Glucose 92 mg/dL (74-106); LIPASE 61 U/L (23-300); Potassium 4.7 mmol/L (3.5-5.1); SGOT/AST 135 U/L (14-36); SGPT/ALT 149 U/L (0-35); SODIUM 142 mmol/L (137-145); Total Protein 7.1 g/dL (6.3-8.2)
[2018-02-16 17:38] LABS: ACETAMINOPHEN < 10 ug/ml (10-30); ETHYL ALCOHOL < 10 mg/dL (0-10); SALICYLATE < 1.0 mg/dL (2-20); TROPONIN < 0.012 ng/mL (0.000-0.034)
[2018-02-16 17:49] LABS: Appearance CLEAR (CLEAR); Bilirubin NEGATIVE (NEGATIVE); Blood NEGATIVE Ery/ul (0-5); Glucose NEGATIVE (NEGATIVE); Ketones NEGATIVE (NEGATIVE); Leukocyte Esterase NEGATIVE (NEGATIVE); Nitrite NEGATIVE (NEGATIVE); Protein,Urine Dip NEGATIVE (Negative); Specific Gravity 1.013 (1.005-1.025); Urobilinogen NEGATIVE mg/dL (0-1)
[2018-02-16 18:02] LABS: Amphetamine,Urine NEGATIVE (NEGATIVE); Barbiturate,Urine NEGATIVE (NEGATIVE); Benzodiazepine,Urine NEGATIVE (NEGATIVE); Cocaine,Urine NEGATIVE (NEGATIVE); Methadone,Urine NEGATIVE (NEGATIVE); Opiate,Urine NEGATIVE (NEGATIVE); PCP,Urine NEGATIVE (NEGATIVE); THC,Urine POSITIVE (NEGATIVE)
[2018-02-16] MEDS ORDERED: Sodium Chloride 0.9% 1000 ML 1,000 ML IV SCH (20:22)
[2018-02-16] MEDS ORDERED: Zofran 4 MG/2 ML VIAL IV PRN (20:22)
[2018-02-16] MEDS ORDERED: PROVENTIL COMMON CANISTER IH PRN (21:27)
[2018-02-16] MEDS: Neurontin 100 MG PO SCH (22:45)
[2018-02-17] MEDS: TYLENOL 325 MG PO PRN ×2 (00:17→06:31)
[2018-02-17 06:00] LABS: ALBUMIN 2.8 g/dL (3.5-5.0); ALKALINE PHOSPHATASE 110 U/L (38-126); ANION GAP 7.9 MEQ/L (5-15); BLOOD UREA NITROGEN 7 mg/dL (7-17); CHLORIDE 113 mmol/L (98-107); Carbon Dioxide 24 mmol/L (22-30); Creatinine 1 0.71 mg/dL (0.52-1.04); Glucose 73 mg/dL (74-106); Potassium 3.5 mmol/L (3.5-5.1); SGOT/AST 108 U/L (14-36); SGPT/ALT 113 U/L (0-35); SODIUM 141 mmol/L (137-145); Total Protein 5.4 g/dL (6.3-8.2)
[2018-02-17 06:02] LABS: BASOPHIL % 0.3 % (0.0-0.4); Basophil (Absolute #) 0.02 (0-0.4); Eosinophil % 2.7 % (0.00-5.0); Eosinophil (Absolute #) 0.16 (0-0.5); Granulocyte Absolute (ANC) 2.81 (1.4-6.9); Granulocytes % 47.1 % (36.0-66.0); Hematocrit 39.3 % (35-47); Hemoglobin 12.7 gm/dl (12.0-16.0); Lymphocyte (Absolute #) 2.17 (1.0-4.6); Lymphocytes % 36.3 % (24.0-44.0); Mean Cell Volume 94.7 fl (78-100); Mean Corpuscular Hemoglobin 30.6 pg (26-32); Mean Corpuscular Hgb Concent. 32.3 g/dl (32-36); Mean Platelet Volume 10.4 fl (6-9.5); Monocyte (Absolute #) 0.81 (0.0-1.3); Monocytes % 13.6 % (0.0-12.0); Platelet Count 213 K/mm3 (150-450); Red Blood Count 4.15 M/mm3 (4.1-5.4); Red Cell Distribution Width 15.9 % (11.5-14.0)
[2018-02-17] MEDS ORDERED: Advair Hfa 115/21 Common canister IH SCH (07:00)
--- NOTE | 2018-02-17 09:00 | XRAY ---
Indication: Neck pain following fall. Status post seizure. Multiple contiguous axial images obtained through the cervical spine. Sagittal and coronal reformatted images obtained. Comparison: None Axial images negative for acute fracture, suspicious bony lesions, or spinal canal stenosis. Minimal C5-C6 degenerative endplate spurring. Sagittal and coronal reformatted images demonstrates normal alignment with mild C5-C6 disc space narrowing. No acute compression fracture, subluxation, or jumped facet. Normal-appearing craniocervical junction. Visualized noncontrasted soft tissues demonstrates 4 mm right thyroid nodule/cyst. CT head reported separately. Impression: 1. Negative acute fracture/subluxation. 2. C5-C6 degenerative disc disease. 3. Right thyroid nodule/cyst. Sonogram may yield further information if clinically warranted. CT DI 48.61
--- NOTE | 2018-02-17 09:03 | XRAY ---
Indication: Posterior head injury following fall. Status post seizure. Multiple contiguous axial images obtained through the head without contrast. Comparison: December 10, 2017. Again normal appearing brain parenchyma, ventricles, and bony calvarium. Visualized paranasal sinuses and mastoid air cells are clear. Impression: Stable normal CT head without contrast exam. CT DI 70.00
[2018-02-17] MEDS ORDERED: KEPPRA 500 MG PO SCH ×2 (10:00)
[2018-02-17] MEDS: Neurontin 100 MG PO SCH (11:11)
--- NOTE | 2018-02-17 11:24 | PCM.HP ---
History of Present Illness - Chief Complaint Chief Complaint: Altered mental status, Seizure-witnessed today History of Present Illness: 52-year-old white female with history of seizures, strokes, asthma, arthritis, degenerative disease, anxiety, depression Patient arrives with complaint of altered mental status found crawling around on the floor by medics. Patient is not really sure what happened. Patient appears to be quite somnolent on arrival she is however answering questions moving extremities to command. Past medical history includes seizures, strokes, pneumonia asthma, arthritis, degenerative disc disease, osteoarthritis, anxiety, depression. Past surgical history includes cholecystectomy, hysterectomy, multiple times. - Review of Systems Constitutional: No Fever, No Chills Eyes: No Symptoms Ears, Nose, & Throat: No Symptoms Respiratory: No Cough, No Short Of Breath Cardiac: No Chest Pain, No Edema, No Syncope Abdominal/Gastrointestinal: No Abdominal Pain, No Nausea, No Vomiting, No Diarrhea Genitourinary Symptoms: No Dysuria Musculoskeletal: No Back Pain, No Neck Pain Skin: No Rash Neurological: Seizure, No Dizziness, No Focal Weakness, No Sensory Changes Psychological: No Symptoms Endocrine: No Symptoms Hematologic/Lymphatic: No Symptoms Immunological/Allergic: No Symptoms Medications & Allergies Home Medications: Home Medication List Fluticasone/Vilanterol [Breo Ellipta 200-25 Mcg INH] 1 each IH DAILY 05/26/16 [ History Confirmed 02/16/18] Albuterol Sulfate [Ventolin Hfa] 18 gm IH .PRN 07/25/16 [History Confirmed 02/16] Levetiracetam 500 mg PO BID 02/16/18 [History Confirmed 02/16/18] Doxepin HCl 50 mg PO QAM 02/17/18 [History Confirmed 02/17/18] Doxepin HCl 150 mg PO HS 02/17/18 [History Confirmed 02/17/18] Gabapentin 400 mg PO TID 02/17/18 [History Confirmed 02/17/18] Allergies/Adverse Reactions: Allergies Allergy/AdvReac Type Severity Reaction Status Date / Time aspirin Allergy Verified 02/16/18 16:49 codeine [Codeine] Allergy Verified 02/16/18 16:49 hydrocodone [Hydrocodone] Allergy Hives Verified 02/16/18 16:49 oxycodone [Oxycodone] Allergy Hives Verified 02/16/18 16:49 prochlorperazine edisylate Allergy Verified 02/16/18 16:49 [From Compazine] prochlorperazine maleate Allergy Verified 02/16/18 16:49 [From Compazine] - Past Medical History Past Medical History: Yes Neurological History: Seizures, Stroke ENT History: No Pertinent History Cardiac History: No Pertinent History Respiratory History: Asthma, Pneumonia Endocrine Medical History: No Pertinent History Musculoskelatal History: Arthritis, Degenerative Disk Disease, Osteoarthritis, Other GI Medical History: Other History: No Pertinent History Pyscho-Social History: Anxiety, Depression Reproductive Disorders: Other Comment: ADHEASIONS - Female History Hx Last Menstrual Period: hyst Are you now?: (pt would not answer) - Past Surgical History Past Surgical History: Yes Neuro Surgical History: No Pertinent History Cardiac History: No Pertinent History Respiratory Surgery: No Pertinent History GI Surgical History: Cholecystectomy Female Surgical History: Hysterectomy Other Surgical History: C SECTIONS X 6 - Social History Smoking Status: Current every day smoker How long have you smoked: YRS Exposure to second hand smoke: Yes Alcohol: None Drug Use: none Significant Family History: no pertinent family hx - Physical Exam Vital Signs: Vital Signs - 24 hr Temp Pulse Resp BP Pulse Ox 02/17/18 07:32 97.7 F 73 17 112/79 95 02/17/18 07:06 74 16 96 02/17/18 04:06 98.2 F 65 14 100/71 94 L 02/16/18 23:48 97.9 F 72 16 107/69 93 L 02/16/18 23:00 97.5 F 88 16 132/90 95 02/16/18 20:35 88 16 95 02/16/18 18:53 79 14 119/79 95 02/16/18 18:26 83 18 122/80 94 L 02/16/18 17:46 89 16 138/84 96 02/16/18 16:34 97.8 F 99 H 16 141/86 95 General Appearance: no apparent distress, alert Neurologic Exam: alert, oriented x 3, cooperative, normal mood/affect, nml cerebellar function, nml station & gait, sensation nml, No motor deficits Eye Exam: PERRL/EOMI, eyes nml inspection Ears, Nose, Throat Exam: normal ENT inspection, TMs normal, pharynx normal, moist mucous membranes Neck Exam: normal inspection, non-tender, supple, full range of motion Respiratory Exam: normal breath sounds, lungs clear, No respiratory distress Cardiovascular Exam: regular rate/rhythm, normal heart sounds, normal peripheral pulses Gastrointestinal/Abdomen Exam: soft, normal bowel sounds, No tenderness, No mass Back Exam: normal inspection, normal range of motion, No CVA tenderness, No vertebral tenderness Extremity Exam: normal inspection, normal range of motion, pelvis stable Skin Exam: normal color, warm, dry, No rash Lymphatic Exam: No adenopathy Results - Labs Lab/Micro Results: Accuchecks Accucheck Value: 90 Lab Results-Last 24 Hours 02/16/18 02/16/18 02/16/18 Range/Units 00:15 16:31 17:03 WBC 7.1 (4.0-10.5) K/mm3 RBC 4.52 (4.1-5.4) M/mm3 Hgb 14.0 (12.0-16.0) gm/dl Hct 42.6 (35-47) % MCV 94.2 (78-100) fl MCH 31.0 (26-32) pg MCHC 32.9 (32-36) g/dl RDW 16.1 H (11.5-14.0) % Plt Count 167 (150-450) K/mm3 MPV 10.7 H (6-9.5) fl Gran % 47.1 (36.0-66.0) % Eos # (Auto) 0.18 (0-0.5) Absolute Lymphs (auto) 2.60 (1.0-4.6) Absolute Monos (auto) 0.97 (0.0-1.3) Lymphocytes % 36.5 (24.0-44.0) % Monocytes % 13.6 H (0.0-12.0) % Eosinophils % 2.5 (0.00-5.0) % Basophils % 0.3 (0.0-0.4) % Absolute Granulocytes 3.35 (1.4-6.9) Basophils # 0.02 (0-0.4) Sodium 142 (137-145) mmol/L Potassium 4.7 (3.5-5.1) mmol/L Chloride 107 (98-107) mmol/L Carbon Dioxide 25 (22-30) mmol/L Anion Gap 15.0 (5-15) MEQ/L BUN 9 (7-17) mg/dL Creatinine 0.75 (0.52-1.04) mg/dL Estimated GFR > 60.0 ML/MIN Glucose 92 (74-106) mg/dL Calcium 9.7 (8.4-10.2) mg/dL Total Bilirubin 0.40 (0.2-1.3) mg/dL AST 135 H (14-36) U/L ALT 149 H (0-35) U/L Alkaline Phosphatase 156 H (38-126) U/L Troponin I < 0.012 < 0.012 (0.000-0.034) ng/mL Serum Total Protein 7.1 (6.3-8.2) g/dL Albumin 4.1 (3.5-5.0) g/dL Amylase 41 (30-110) U/L Lipase 61 (23-300) U/L Urine Color (YELLOW) Urine Appearance (CLEAR) Urine pH (5-6) Ur Specific [place] (1.005-1.025) Urine Protein (Negative) Urine Ketones (NEGATIVE) Urine Blood (0-5) Tomas/ul Urine Nitrite (NEGATIVE) Urine Bilirubin (NEGATIVE) Urine Urobilinogen (0-1) mg/dL Ur Leukocyte Esterase (NEGATIVE) Urine WBC (Auto) (0-5) /HPF Urine RBC (Auto) (0-2) /HPF U Epithel Cells (Auto) (FEW) /HPF Urine Mucus (Auto) (NEGATIVE) /HPF Urine Culture Reflexed (NO) Urine Glucose (NEGATIVE) mg/dL Salicylates < 1.0 L (2-20) mg/dL Urine Opiates Level (NEGATIVE) Ur Methadone (NEGATIVE) Acetaminophen < 10 L (10-30) ug/ml Urine Barbiturates (NEGATIVE) Ur Phencyclidine (PCP) (NEGATIVE) Urine Amphetamine (NEGATIVE) U Benzodiazepine Level (NEGATIVE) Urine Cocaine (NEGATIVE) Urine Marijuana (THC) (NEGATIVE) Ethyl Alcohol < 10 (0-10) mg/dL 02/16/18 02/16/18 02/16/18 Range/Units 17:45 17:45 20:15 WBC (4.0-10.5) K/mm3 RBC (4.1-5.4) M/mm3 Hgb (12.0-16.0) gm/dl Hct (35-47) % MCV (78-100) fl MCH (26-32) pg MCHC (32-36) g/dl RDW (11.5-14.0) % Plt Count (150-450) K/mm3 MPV (6-9.5) fl Gran % (36.0-66.0) % Eos # (Auto) (0-0.5) Absolute Lymphs (auto) (1.0-4.6) Absolute Monos (auto) (0.0-1.3) Lymphocytes % (24.0-44.0) % Monocytes % (0.0-12.0) % Eosinophils % (0.00-5.0) % Basophils % (0.0-0.4) % Absolute Granulocytes (1.4-6.9) Basophils # (0-0.4) Sodium (137-145) mmol/L Potassium (3.5-5.1) mmol/L Chloride (98-107) mmol/L Carbon Dioxide (22-30) mmol/L Anion Gap (5-15) MEQ/L BUN (7-17) mg/dL Creatinine (0.52-1.04) mg/dL Estimated GFR ML/MIN Glucose (74-106) mg/dL Calcium (8.4-10.2) mg/dL Total Bilirubin (0.2-1.3) mg/dL AST (14-36) U/L ALT (0-35) U/L Alkaline Phosphatase (38-126) U/L Troponin I < 0.012 (0.000-0.034) ng/mL Serum Total Protein (6.3-8.2) g/dL Albumin (3.5-5.0) g/dL Amylase (30-110) U/L Lipase (23-300) U/L Urine Color YELLOW (YELLOW) Urine Appearance CLEAR (CLEAR) Urine pH 6.0 (5-6) Ur Specific [place] 1.013 (1.005-1.025) Urine Protein NEGATIVE (Negative) Urine Ketones NEGATIVE (NEGATIVE) Urine Blood NEGATIVE (0-5) Tomas/ul Urine Nitrite NEGATIVE (NEGATIVE) Urine Bilirubin NEGATIVE (NEGATIVE) Urine Urobilinogen NEGATIVE (0-1) mg/dL Ur Leukocyte Esterase NEGATIVE (NEGATIVE) Urine WBC (Auto) 0-2 (0-5) /HPF Urine RBC (Auto) 0-2 (0-2) /HPF U Epithel Cells (Auto) NONE SEEN (FEW) /HPF Urine Mucus (Auto) SLIGHT (NEGATIVE) /HPF Urine Culture Reflexed NO (NO) Urine Glucose NEGATIVE (NEGATIVE) mg/dL Salicylates (2-20) mg/dL Urine Opiates Level NEGATIVE (NEGATIVE) Ur Methadone NEGATIVE (NEGATIVE) Acetaminophen (10-30) ug/ml Urine Barbiturates NEGATIVE (NEGATIVE) Ur Phencyclidine (PCP) NEGATIVE (NEGATIVE) Urine Amphetamine NEGATIVE (NEGATIVE) U Benzodiazepine Level NEGATIVE (NEGATIVE) Urine Cocaine NEGATIVE (NEGATIVE) Urine Marijuana (THC) POSITIVE (NEGATIVE) Ethyl Alcohol (0-10) mg/dL 02/17/18 02/17/18 02/17/18 Range/Units 02:50 04:50 04:50 WBC 6.0 (4.0-10.5) K/mm3 RBC 4.15 (4.1-5.4) M/mm3 Hgb 12.7 (12.0-16.0) gm/dl Hct 39.3 (35-47) % MCV 94.7 (78-100) fl MCH 30.6 (26-32) pg MCHC 32.3 (32-36) g/dl RDW 15.9 H (11.5-14.0) % Plt Count 213 (150-450) K/mm3 MPV 10.4 H (6-9.5) fl Gran % 47.1 (36.0-66.0) % Eos # (Auto) 0.16 (0-0.5) Absolute Lymphs (auto) 2.17 (1.0-4.6) Absolute Monos (auto) 0.81 (0.0-1.3) Lymphocytes % 36.3 (24.0-44.0) % Monocytes % 13.6 H (0.0-12.0) % Eosinophils % 2.7 (0.00-5.0) % Basophils % 0.3 (0.0-0.4) % Absolute Granulocytes 2.81 (1.4-6.9) Basophils # 0.02 (0-0.4) Sodium (137-145) mmol/L Potassium (3.5-5.1) mmol/L Chloride (98-107) mmol/L Carbon Dioxide (22-30) mmol/L Anion Gap (5-15) MEQ/L BUN (7-17) mg/dL Creatinine (0.52-1.04) mg/dL Estimated GFR ML/MIN Glucose (74-106) mg/dL Calcium (8.4-10.2) mg/dL Total Bilirubin (0.2-1.3) mg/dL AST (14-36) U/L ALT (0-35) U/L Alkaline Phosphatase (38-126) U/L Troponin I < 0.012 < 0.012 (0.000-0.034) ng/mL Serum Total Protein (6.3-8.2) g/dL Albumin (3.5-5.0) g/dL Amylase (30-110) U/L Lipase (23-300) U/L Urine Color (YELLOW) Urine Appearance (CLEAR) Urine pH (5-6) Ur Specific [place] (1.005-1.025) Urine Protein (Negative) Urine Ketones (NEGATIVE) Urine Blood (0-5) Tomas/ul Urine Nitrite (NEGATIVE) Urine Bilirubin (NEGATIVE) Urine Urobilinogen (0-1) mg/dL Ur Leukocyte Esterase (NEGATIVE) Urine WBC (Auto) (0-5) /HPF Urine RBC (Auto) (0-2) /HPF U Epithel Cells (Auto) (FEW) /HPF Urine Mucus (Auto) (NEGATIVE) /HPF Urine Culture Reflexed (NO) Urine Glucose (NEGATIVE) mg/dL Salicylates (2-20) mg/dL Urine Opiates Level (NEGATIVE) Ur Methadone (NEGATIVE) Acetaminophen (10-30) ug/ml Urine Barbiturates (NEGATIVE) Ur Phencyclidine (PCP) (NEGATIVE) Urine Amphetamine (NEGATIVE) U Benzodiazepine Level (NEGATIVE) Urine Cocaine (NEGATIVE) Urine Marijuana (THC) (NEGATIVE) Ethyl Alcohol (0-10) mg/dL 02/17/18 Range/Units 04:50 WBC (4.0-10.5) K/mm3 RBC (4.1-5.4) M/mm3 Hgb (12.0-16.0) gm/dl Hct (35-47) % MCV (78-100) fl MCH (26-32) pg MCHC (32-36) g/dl RDW (11.5-14.0) % Plt Count (150-450) K/mm3 MPV (6-9.5) fl Gran % (36.0-66.0) % Eos # (Auto) (0-0.5) Absolute Lymphs (auto) (1.0-4.6) Absolute Monos (auto) (0.0-1.3) Lymphocytes % (24.0-44.0) % Monocytes % (0.0-12.0) % Eosinophils % (0.00-5.0) % Basophils % (0.0-0.4) % Absolute Granulocytes (1.4-6.9) Basophils # (0-0.4) Sodium 141 (137-145) mmol/L Potassium 3.5 (3.5-5.1) mmol/L Chloride 113 H (98-107) mmol/L Carbon Dioxide 24 (22-30) mmol/L Anion Gap 7.9 (5-15) MEQ/L BUN 7 (7-17) mg/dL Creatinine 0.71 (0.52-1.04) mg/dL Estimated GFR > 60.0 ML/MIN Glucose 73 L (74-106) mg/dL Calcium 8.0 L (8.4-10.2) mg/dL Total Bilirubin 0.30 (0.2-1.3) mg/dL AST 108 H (14-36) U/L ALT 113 H (0-35) U/L Alkaline Phosphatase 110 (38-126) U/L Troponin I (0.000-0.034) ng/mL Serum Total Protein 5.4 L (6.3-8.2) g/dL Albumin 2.8 L (3.5-5.0) g/dL Amylase (30-110) U/L Lipase (23-300) U/L Urine Color (YELLOW) Urine Appearance (CLEAR) Urine pH (5-6) Ur Specific [place] (1.005-1.025) Urine Protein (Negative) Urine Ketones (NEGATIVE) Urine Blood (0-5) Tomas/ul Urine Nitrite (NEGATIVE) Urine Bilirubin (NEGATIVE) Urine Urobilinogen (0-1) mg/dL Ur Leukocyte Esterase (NEGATIVE) Urine WBC (Auto) (0-5) /HPF Urine RBC (Auto) (0-2) /HPF U Epithel Cells (Auto) (FEW) /HPF Urine Mucus (Auto) (NEGATIVE) /HPF Urine Culture Reflexed (NO) Urine Glucose (NEGATIVE) mg/dL Salicylates (2-20) mg/dL Urine Opiates Level (NEGATIVE) Ur Methadone (NEGATIVE) Acetaminophen (10-30) ug/ml Urine Barbiturates (NEGATIVE) Ur Phencyclidine (PCP) (NEGATIVE) Urine Amphetamine (NEGATIVE) U Benzodiazepine Level (NEGATIVE) Urine Cocaine (NEGATIVE) Urine Marijuana (THC) (NEGATIVE) Ethyl Alcohol (0-10) mg/dL Accuchecks Accucheck Value: 90 - Radiology Impressions Radiology Exams & Impressions: Radiology Procedures Category Date Time Status CERVICAL SPINE WO CONTRAST [CT] Stat Exams 02/16/18 17:12 Completed HEAD WITHOUT CONTRAST [CT] Stat Exams 02/16/18 17:09 Completed - Other Procedures and Tests Respiratory Therapy 02/16/18 21:28 Peak Expiratory Flow Rate ONCE Respiratory Therapy Assessment DAILY Assessment/Plan (1) Syncope Current Visit: Yes Status: Acute Qualifiers: Syncope type: unspecified Qualified Code(s): R55 - Syncope and collapse Code(s): R55 - SYNCOPE AND COLLAPSE (2) Witnessed seizure-like activity Current Visit: Yes Status: Acute Code(s): R56.9 - UNSPECIFIED CONVULSIONS (3) Seizure Current Visit: No Status: Acute Code(s): R56.9 - UNSPECIFIED CONVULSIONS (4) Vomiting and diarrhea Current Visit: No Status: Acute Code(s): R11.10 - VOMITING, UNSPECIFIED; R19.7 - DIARRHEA, UNSPECIFIED (5) Seizure disorder Current Visit: No Status: Chronic Code(s): G40.909 - EPILEPSY, UNSP, NOT INTRACTABLE, WITHOUT STATUS EPILEPTICUS
--- NOTE | 2018-02-17 12:19 | PCM.DCORD ---
- Discharge Discharge Date: 02/17/18 Disposition: Home, Self-Care Condition: Stable Prescriptions: No Action Fluticasone/Vilanterol [Breo Ellipta 200-25 Mcg INH] 1 each IH DAILY Albuterol Sulfate [Ventolin Hfa] 18 gm IH .PRN Levetiracetam 500 mg PO BID Gabapentin 400 mg PO TID Doxepin HCl 50 mg PO QAM Doxepin HCl 150 mg PO HS Follow up with: LILIANA CLAY NP [Primary Care Provider] - 1 Week
[2018-02-17] MEDS ORDERED: DOXEPIN HCL PO SCH ×2 (13:00→22:00)
[2018-02-17 13:13] VITALS: BP 138/88; PULSE 82; O2SAT 96
[2018-02-17] MEDS ORDERED: Neurontin 400 MG PO SCH (15:00)
[2018-02-17] MEDS ORDERED: DOXEPIN HCL 150 MG PO SCH (22:00)
[2018-02-18] MEDS ORDERED: DOXEPIN HCL 50 MG PO SCH (10:00)
== END 2018-02-17 13:42 | disposition home or self-care (01) ==
LOC: ED 16:27 → MED SURG 20:19
PROVIDERS: ADMIT General Practice; ATTEND General Practice
DX: R55 Syncope and collapse (principal); R56.9 Unspecified convulsions; R11.10 Vomiting, unspecified; R19.7 Diarrhea, unspecified; G40.909 Epilepsy, unspecified, not intractable, without status epilepticus; J45.909 Unspecified asthma, uncomplicated; M19.90 Unspecified osteoarthritis, unspecified site; F41.9 Anxiety disorder, unspecified; F32.9 Major depressive disorder, single episode, unspecified; Z86.73 Personal history of transient ischemic attack (TIA), and cerebral infarction without residual deficits; Z79.899 Other long term (current) drug therapy
CPT/HCPCS: 36415; 70450; 72125; 80053; 80177; 80307; 81001; 82150; 82962; 83690; 84484; 85025; 93005; 93268; 94640; 94770; 96360; 96374; 99285; G0378; G0481; P9612; A9270-GY; G0480